=== PATIENT | female | born 1960 | race Caucasian/White ===

== ENCOUNTER 2020-08-16 09:04 | Outpatient (REF) | payer OTHER, SELFPAY ==
[2020-08-16 11:18] LABS: Hemoglobin 12.9 g/dl (12.0-16.0); Mean Corpuscular HGB Conc 33.1 g/dl (31.0-35.0); Mean Corpuscular Hemoglobin 30.2 pg (27.0-33.0); Mean Corpuscular Volume 91.3 fL (80-98); Mean Platelet Volume 10.4 fL (9.4-12.3); Platelet Count 185 X10*3/uL (160-400); Red Blood Count 4.27 X10*6/uL (4.20-5.50); Red Cell Distribution Width 11.9 % (11.0-16.0); White Blood Count 4.6 X10*3/uL (4.8-10.8)
[2020-08-16 11:36] LABS: Glucose Urine UA NEG (NEG); Leukocyte Esterase Urine NEG (NEG); Nitrite Urine NEG (NEG); PH 7.5 (5.0-8.0); Specific Gravity - Urine 1.015 (1.005-1.025); Urine Blood 2+ (NEG); Urine Ketones NEG (NEG); Urine Protein NEG (NEG-TRACE)
[2020-08-16 11:45] LABS: Appearance Urine CLEAR; Color Urine YELLOW
[2020-08-16 11:54] LABS: Alanine Aminotransferase 12 U/L (0-31); Albumin Level 4.2 g/dL (3.5-5.0); Alkaline Phosphatase 69 U/L (39-117); Anion Gap 12 (12-20); Aspartate Amino Transferase 20 U/L (5-31); Bilirubin Total 0.7 mg/dL (0.0-1.0); Blood Urea Nitrogen 13 mg/dL (9-16); Calcium 9.1 mg/dL (8.4-10.2); Carbon Dioxide 28 mmol/L (22-29); Chloride 106 mmol/L (96-108); Cholesterol 165 mg/dL; Estimated Glomerular Filt Rate > 60; Glucose Fasting 88 mg/dL (60-99); HDL Cholesterol 57 mg/dL; LDL Cholesterol Calculated 97 mg/dl; Potassium 4.1 mmol/l (3.3-5.1); Sodium 142 mmol/L (135-145); Total Protein 6.8 g/dL (6.5-8.0); Triglycerides 56 mg/dL
[2020-08-16 11:55] LABS: Renal Epithelial Cells Urine TRACE /LPF; Squamous Epithelial Cell Urine TRACE /LPF
[2020-08-16 11:58] LABS: Thyroid Stimulating Hormone 1.18 uIU/mL (0.32-4.0)
== END 2020-08-16 09:05 | disposition home or self-care (01) ==
LOC: HO.HMGCLDS 09:04
PROVIDERS: PCP Internal Medicine; Visit Provider Internal Medicine
DX: Z00.00 Encounter for general adult medical examination without abnormal findings (principal)
CPT/HCPCS: 36415; 80053; 80061; 81001; 84443; 85027

== ENCOUNTER 2021-07-30 14:31 | Outpatient (REF) | payer OTHER, SELFPAY | END 2021-07-30 14:32 | disposition home or self-care (01) | LOC: HO.LNP 14:31 | PROVIDERS: Visit Provider Nurse Practitioner Family | DX: R09.81 Nasal congestion (principal); R50.9 Fever, unspecified; R63.0 Anorexia; Z20.822 Contact with and (suspected) exposure to COVID-19 | CPT/HCPCS: U0003; U0005 ==

== ENCOUNTER 2021-08-19 09:16 | Outpatient (REF) | payer OTHER, SELFPAY ==
[2021-08-19 11:44] LABS: Hematocrit 36.8 % (37.0-47.0); Hemoglobin 12.1 g/dl (12.0-16.0); Mean Corpuscular HGB Conc 32.9 g/dl (31.0-35.0); Mean Corpuscular Hemoglobin 30.6 pg (27.0-33.0); Mean Corpuscular Volume 92.9 fL (80.0-98.0); Mean Platelet Volume 10.3 fL (9.4-12.3); Platelet Count 220 X10*3/uL (160-400); Red Blood Count 3.96 X10*6/uL (4.20-5.50); Red Cell Distribution Width 12.7 % (11.0-16.0); White Blood Count 3.5 X10*3/uL (4.8-10.8)
[2021-08-19 11:52] LABS: Appearance Urine HAZY; Color Urine YELLOW; Glucose Urine UA NEG (NEG); Leukocyte Esterase Urine NEG (NEG); Nitrite Urine NEG (NEG); PH 7.5 (5.0-8.0); Urine Blood 1+ (NEG); Urine Ketones NEG (NEG); Urine Protein NEG (NEG-TRACE)
[2021-08-19 11:56] LABS: Alanine Aminotransferase 28 U/L (0-31); Albumin Level 3.9 g/dL (3.5-5.0); Alkaline Phosphatase 74 U/L (39-117); Anion Gap 9 (12-20); Aspartate Amino Transferase 26 U/L (5-31); Bilirubin Total 0.7 mg/dL (0.0-1.0); Blood Urea Nitrogen 7 mg/dL (9-16); Calcium 9.2 mg/dL (8.4-10.2); Carbon Dioxide 29 mmol/L (22-29); Chloride 107 mmol/L (96-108); Cholesterol 185 mg/dL; Estimated Glomerular Filt Rate > 60; Glucose Fasting 83 mg/dL (60-99); HDL Cholesterol 44 mg/dL; LDL Cholesterol Calculated 117 mg/dl; Potassium 4.1 mmol/L (3.3-5.1); Sodium 141 mmol/L (135-145); Total Protein 6.5 g/dL (6.5-8.0); Triglycerides 123 mg/dL
[2021-08-19 12:15] LABS: WBC Urine 0 /HPF (0-4)
[2021-08-19 12:18] LABS: Vitamin D 25-OH Total 33.9 ng/mL (>30)
== END 2021-08-19 09:17 | disposition home or self-care (01) ==
LOC: HO.HMGCLDS 09:16
PROVIDERS: PCP Internal Medicine; Visit Provider Internal Medicine
DX: Z00.00 Encounter for general adult medical examination without abnormal findings (principal); E55.9 Vitamin D deficiency, unspecified; R31.29 Other microscopic hematuria
CPT/HCPCS: 36415; 80053; 80061; 81001; 82306; 84443; 85027

== ENCOUNTER → 2021-12-04 09:59 | Outpatient (BNVA) | payer OTHER, SELFPAY | PROVIDERS: PCP Internal Medicine; Referring Provider Internal Medicine; Visit Provider Physician Assistant | DX: Z13.89 Encounter for screening for other disorder (principal) ==

== ENCOUNTER 2022-07-03 11:42 | Day surgery (SDC) | payer OTHER, SELFPAY ==
--- NOTE | 2022-07-02 12:09 | HO.ANESPROP2 ---
Documented by User: Nellie Lozano NP 07/02/22 12:10 HPI - Anesthesia Eval Consult details Narrative: 62yo F for Colonoscopy PMFSH Active Problems Active Problems: All Active Problems (Updated 12/04/21 @ 10:55 by Prema Campos PA-C) Encounter for screening colonoscopy (Acute) Hair loss (Acute) Normal breast exam (Acute) Fever (Acute) Nasal congestion (Acute) Poor appetite (Acute) Diffuse otitis externa, bilateral (Acute) Vitamin D deficiency (Acute) Microscopic hematuria (Acute) Normal Pap smear (Acute) Annual physical exam (Acute) Past Medical History Medical History Annual physical exam Hair loss Microscopic hematuria Normal breast exam Normal Pap smear Osteopenia Vitamin D deficiency Vitiligo Surgical History Surgical History H/O colonoscopy No pertinent past surgical history Social History Social History Housing: House Alcohol intake: never Patient Tobacco Use Status: Never used Tobacco e-Cigarette/Vaping Use: Never Used Use of substances other than those prescribed or required for medical reasons: No Are you DNR?: No Advance Directives: No Advance Directives Information Provided: Yes Current occupational status: employed Meds Allergies Allergy/AdvReac Type Severity Reaction Status Date / Time No Known Allergies Allergy Verified 06/30/22 11:20 Home Medications Medication Instructions Recorded Confirmed Last Taken Type multivit with min-folic 1 tab PO DAILY 07/30/21 06/30/22 Unknown History acid-lutein 400 mcg-250 mcg chewable tablet (Centrum Silver) Exam Exam Date and Time: July 02, 2022 1209 Assessment and Plan Assessment Anesthesia Assessment: Chart Reviewed Documented by User: Maureen Sharpe MD 07/03/22 12:30 PMFSH Active Problems Active Problems: All Active Problems (Updated 12/04/21 @ 10:55 by Prema Campos PA-C) Encounter for screening colonoscopy (Acute) Hair loss (Acute) Normal breast exam (Acute) Nasal congestion (Acute) Poor appetite (Acute) Diffuse otitis externa, bilateral (Acute) Vitamin D deficiency (Acute) Microscopic hematuria (Acute) Normal Pap smear (Acute) Annual physical exam (Acute) Past Medical History Medical History Annual physical exam Hair loss Microscopic hematuria Normal breast exam Normal Pap smear Osteopenia Vitamin D deficiency Vitiligo Family History Family history of problems with anesthesia: No Surgical History Surgical History H/O colonoscopy No pertinent past surgical history History of Problems with Anesthesia: No Social History Social History Housing: House Alcohol intake: never Patient Tobacco Use Status: Never used Tobacco e-Cigarette/Vaping Use: Never Used Use of substances other than those prescribed or required for medical reasons: No Are you DNR?: No Advance Directives: No Advance Directives Information Provided: Yes Current occupational status: employed Meds Allergies Allergy/AdvReac Type Severity Reaction Status Date / Time No Known Allergies Allergy Verified 06/30/22 11:20 Home Medications Medication Instructions Recorded Confirmed Last Taken Type multivit with min-folic 1 tab PO DAILY 07/30/21 06/30/22 Unknown History acid-lutein 400 mcg-250 mcg chewable tablet (Centrum Silver) Exam Height,Weight and Vital Signs: Height 5 ft 2 in Weight 63.503 kg Vital Signs Temp Pulse Resp BP Pulse Ox O2 Del Method 07/03/22 11:59 98.9 F 77 18 143/79 H 97 Room Air Airway Mallampati Class: II TM Dist: >3cm Neck ROM: Full Denture: Upper and Lower Heart: RRR Lungs: CTAB Assessment and Plan Assessment Anesthesia Assessment: Anesthesia Plan Discussed Final Anesthetic Review Family History of Problems with Anesthesia: No History of Problems with Anesthesia: No NPO: Yes ASA Class: II Final Preanesthetic Review: No Changes in Pt Med Stat, Meds/Allgs Chart Reviewed, Consent Obtained/Reviewed and Anes Risks/Benef Reviewed Patient Risk: Low Procedure Risk: Low Assessment/Block/Sedation in SS: Assess/Block/Sedation-SS Anesthetic Plan Anesthetic Plan: MAC: Disposition: Standard PACU
[2022-07-03 11:59] VITALS: BP 143/79; PULSE 77; RESP 18; TEMP 37.2; O2SAT 97; BMI 25.6
[2022-07-03] MEDS: Lactated Ringers 1,000 ML 100 ML IVCONT (12:21)
--- NOTE | 2022-07-03 13:31 | MHC.SHP ---
Pre-Procedural Eval Section A Date of Service: 07/03/22 The patient is an INPATIENT: No The History & Physical has been completed within 30 days and I have reviewed it.: No Section B Chief Complaint: screening Details of Present Illness: colon cancer screening Relevant Family History (Specify if Yes): No Relevant Social History: None Present Medications: see Short Stay Collaborative assessment Medical History: Significant History (Hair loss Microscopic hematuria Normal breast exam Normal Pap smear Osteopenia Vitamin D deficiency Vitiligo) History of Previous Operations: Relevant previous surgery/procedure and date(s) ( history of colonoscopy) Allergies: Allergies Allergy/AdvReac Type Severity Reaction Status Date / Time No Known Allergies Allergy Verified 06/30/22 11:20 Review of Systems Sugical H&P ROS: Negative: Constitution, Cardiovascular, Respiratory and Gastrointestinal Exam Surgical H&P Exam: Normal: Heart, Normal: Lungs, Normal: Extremities and Normal: Abdomen Plan Diagnosis/Plan: Unchanged I have reviewed the history and physical and performed a pertinent physical examination on my patient. No changes have occurred unless specified.
--- NOTE | 2022-07-03 13:36 | P.BOP_ITS ---
Brief Operative Note Date of Service: 07/03/22 Pre-op diagnosis: colon cancer screening Post-op diagnosis: other ( diverticulosis, hemorrhoids) Procedure: COLONOSCOPY TO CECUM Surgeon: Carline Cormier MD Anesthesia: MAC Was an Rubber Compounder Supervisor used for this Procedure?: Yes Rubber Compounder Supervisor: Paul Smith Estimated blood loss (mL): 0 Pathology: none sent Condition: stable Disposition: PACU
--- NOTE | 2022-07-03 13:37 | W.PM.OPN ---
Operative Note Operative Note Date of Service: 07/03/22 Narrative: Pre-op diagnosis: colon cancer screening Post-op diagnosis:?other ( diverticulosis, hemorrhoids) Surgeon:Carline Cormier MD Anesthesia:?MAC COLONOSCOPY TILL CECUM Consent: Indications for the procedure and potential complications of bleeding, perforation, reaction to medications and missed diagnosis were discussed with the patient and informed consent was obtained. Instrument: Olympus PCF H 190 L variable stiffness pediatric colonoscope Monitoring: Vital signs and clinical assessment, intermittent blood pressure monitoring, continuous EKG monitoring, Pulse oximetry and Carbon Dioxide monitoring were done throughout the procedure. Colon withdrawl time was 13 minutes. Procedure: The patient was placed in the left lateral decubitis position and pre-procedure medications were administered. After a digital rectal examination of the ano-rectum, the video colonoscope was inserted into the rectum and advanced through the colon to the cecum. The colonoscope was slowly withdrawn in a retrograde panoramic fashion and the colon mucosa was carefully examined including a retroflexed view of the rectum. Findings and interventions are described below. Procedure Difficulty: Without difficulty Findings: Terminal Ileum: Not evaluated Cecum: Normal Ascending Colon: Normal Transverse Colon: Normal Descending Colon: Moderate diverticulosis Sigmoid Colon: Moderate diverticulosis Rectum: Normal Ano-rectum: Moderate internal hemorrhoids Colon preparation: Excellent Impression and Post Procedure Diagnosis: Colonoscopy Findings: No polyps were detected. Moderate diverticulosis seen in the left colon Moderate hemorrhoids on retroflexed exam. Plan: Patient has an appointment on 07/16/22 in the [facility] with JEN Booker. Repeat Colonoscopy in 10 years. Above findings were reviewed with the patient and diverticulosis handout was given in the discharge area
[2022-07-03 14:11] VITALS: BP 114/73; PULSE 78; RESP 16; TEMP 36.9; O2SAT 99
[2022-07-03 14:25] VITALS: BP 114/73; PULSE 70; RESP 18; TEMP 37.1; O2SAT 99
== END 2022-07-03 14:50 | disposition home or self-care (01) ==
PROVIDERS: PCP Internal Medicine; Visit Provider Internal Medicine Gastroenterology
PROC: 0DJD8ZZ Inspection of Lower Intestinal Tract, Via Natural or Artificial Opening Endoscopic (ICD-10-PCS; CPT 45378; principal; 2022-07-03 13:00)
DX: Z12.11 Encounter for screening for malignant neoplasm of colon (principal); K57.30 Diverticulosis of large intestine without perforation or abscess without bleeding; K64.8 Other hemorrhoids; E55.9 Vitamin D deficiency, unspecified; M85.80 Other specified disorders of bone density and structure, unspecified site; L80 Vitiligo; L65.9 Nonscarring hair loss, unspecified; Z86.16 Personal history of COVID-19
CPT/HCPCS: 45378

== ENCOUNTER 2022-08-24 09:24 | Outpatient (REF) | payer OTHER, SELFPAY ==
[2022-08-24 11:38] LABS: Hematocrit 38.6 % (37.0-47.0); Hemoglobin 12.7 g/dl (12.0-16.0); Mean Corpuscular HGB Conc 32.9 g/dl (31.0-35.0); Mean Corpuscular Hemoglobin 29.7 pg (27.0-33.0); Mean Corpuscular Volume 90.2 fL (80.0-98.0); Mean Platelet Volume 10.2 fL (9.4-12.3); Platelet Count 198 X10*3/uL (160-400); Red Blood Count 4.28 X10*6/uL (4.20-5.50); Red Cell Distribution Width 11.9 % (11.0-16.0); White Blood Count 4.6 X10*3/uL (4.8-10.8)
[2022-08-24 13:06] LABS: Alanine Aminotransferase 14 U/L (0-31); Albumin Level 4.1 g/dL (3.5-5.0); Alkaline Phosphatase 77 U/L (39-117); Anion Gap 10 (12-20); Aspartate Amino Transferase 21 U/L (5-31); Bilirubin Total 0.5 mg/dL (0.0-1.0); Blood Urea Nitrogen 13 mg/dL (9-16); Calcium 9.2 mg/dL (8.4-10.2); Carbon Dioxide 28 mmol/L (22-29); Chloride 107 mmol/L (96-108); Cholesterol 184 mg/dL; Estimated Glomerular Filt Rate > 60; Glucose Fasting 94 mg/dL (60-99); HDL Cholesterol 54 mg/dL; LDL Cholesterol Calculated 114 mg/dl; Sodium 141 mmol/L (135-145); TSH reflex Free T4 1.09 uIU/mL (0.32-4.0); Total Protein 6.5 g/dL (6.5-8.0); Triglycerides 81 mg/dL
== END 2022-08-24 09:25 | disposition home or self-care (01) ==
LOC: HO.HMGCLDS 09:24
PROVIDERS: PCP Internal Medicine; Visit Provider Internal Medicine
DX: Z00.00 Encounter for general adult medical examination without abnormal findings (principal); E55.9 Vitamin D deficiency, unspecified
CPT/HCPCS: 36415; 80053; 80061; 82306; 84443; 85027

== ENCOUNTER 2022-08-26 12:33 | Outpatient (REF) | payer OTHER, SELFPAY ==
[2022-08-26 13:56] LABS: Appearance Urine Clear; Color Urine Yellow; Glucose Urine UA Negative (Negative); Leukocyte Esterase Urine Negative (Negative); Nitrite Urine Negative (Negative); PH 6.5 (5.0-9.0); Specific Gravity - Urine <= 1.005 (1.005-1.025); UMIC TRIGGER UA YES; Urine Blood Small (1+) (Negative); Urine Ketones Negative (Negative); Urine Protein Negative (Neg-Trace)
[2022-08-26 14:08] LABS: Bacteria Urine None Seen (None Seen); Hyaline Casts Urine 0-2 /LPF (0-2); Squamous Epithelial Cell Urine 0-2 /HPF (0-2); WBC Urine 0-5 /HPF (0-5)
== END 2022-08-26 12:34 | disposition home or self-care (01) ==
LOC: HO.HMGCLDS 12:33
PROVIDERS: PCP Internal Medicine; Visit Provider Internal Medicine
DX: Z00.00 Encounter for general adult medical examination without abnormal findings (principal); R31.29 Other microscopic hematuria
CPT/HCPCS: 81001

== ENCOUNTER 2022-09-15 13:41 | Outpatient (REF) | payer OTHER, SELFPAY ==
--- NOTE | ~2022-09-15 | MM_ITS ---
EXAMINATION: BONE DENSITOMETRY CLINICAL INDICATION: Asymptomatic menopausal state. COMPARISON: This is testing 123 TECHNIQUE: Using a Clinical Ink DXA System (software version: 13.1) manufactured by [employer], dual-energy x-ray absorptiometry was performed of the lumbar spine and left hip. The images are of good technical quality. Summary results are attached. FINDINGS: AP SPINE L1-L4: BMD 0.855 g/cm2, Z-score -1.3, T-score -2.7, osteoporosis. LEFT FEMUR, NECK: BMD 0.794 g/cm2, Z-score -0.4, T-score -1.8, osteopenia. LEFT FEMUR, TOTAL: BMD 0.916 g/cm2, Z-score 0.3, T-score -0.7, normal. IDENTIFIED RISK FACTORS: Menopause. HISTORY OF FRACTURE: None listed. MEDICATIONS: Calcium supplement and/or multivitamin. Vitamin D. MM/XR DEXA axial skeleton IMPRESSION: 1. DIAGNOSIS: Osteoporosis based on the lowest T-score value of -2.7 in the lumbar spine applying World Health Organization criteria. 2. 10-YEAR FRACTURE RISK PREDICTION, FRAX: According to the guidelines, FRAX calculation should only be performed on patients in the osteopenia bone density category.?Therefore, FRAX was not performed on this patient.? 3. Treatment Recommendations: NOF guidelines recommend consideration for treatment in postmenopausal women and men age 50 and older presenting with the following: -A hip or vertebral (clinical or morphometric) fracture. -T-score less than or equal to -2.5 at the femoral neck or spine after appropriate evaluation to exclude secondary causes. -Low bone mass at the hip or spine and a 10-year fracture probability by FRAX of greater than or equal to 3% for hip fracture or greater than or equal to 20% for major osteoporotic fracture based on the [place] adapted WHO algorithm. 4. Other Recommendations: All treatment decisions require clinical judgment and consideration of individual patient factors, including patient preferences, comorbidities, previous drug use, risk factors not captured in the FRAX model (e.g. frailty, falls, vitamin D deficiency, increased bone turnover, interval significant decline in bone density) and possible under or overestimation of fracture risk by FRAX. Additional medical evaluation for secondary cause of low bone mineral density may be appropriate. FUTURE SCAN RECOMMENDATION: People with diagnosed cases of osteoporosis or at high risk for fracture should have regular bone mineral density tests. For patients eligible for Medicare, routine testing is allowed once every 2 years. The testing frequency can be increased to one year for patients who have rapidly progressing disease, those who are receiving or discontinuing medical therapy to restore bone mass, or have additional risk factors.
== END 2022-09-15 13:42 | disposition home or self-care (01) ==
LOC: HO.MAMMO 13:41
PROVIDERS: PCP Internal Medicine; Visit Provider Internal Medicine
DX: Z13.820 Encounter for screening for osteoporosis (principal); Z78.0 Asymptomatic menopausal state
CPT/HCPCS: 77080

== ENCOUNTER 2023-08-25 08:26 | Outpatient (REF) | payer OTHER, SELFPAY ==
[2023-08-25 11:28] LABS: MANUAL DIFF FLAG NO
[2023-08-25 11:39] LABS: Basophils Percent Auto 0.7 % (0-2); Eosinophils Absolute Auto 0.2 X10*3/uL (0.0-0.4); Eosinophils Percent Auto 3.4 % (0-4); Hematocrit 40.1 % (37.0-47.0); Hemoglobin 13.3 g/dl (12.0-16.0); Imm Gran Abs Auto 0.01 X10*3/uL (0.00-0.03); Imm Gran Pct Auto 0.2 % (0.0-0.4); Lymphocytes Absolute Auto 1.6 X10*3/uL (1.2-4.9); Lymphocytes Percent Auto 36.3 % (20-40); Mean Corpuscular HGB Conc 33.2 g/dl (31.0-35.0); Mean Corpuscular Hemoglobin 30.3 pg (27.0-33.0); Mean Corpuscular Volume 91.3 fL (80.0-98.0); Mean Platelet Volume 10.5 fL (9.4-12.3); Monocytes Absolute Auto 0.3 X10*3/uL (0.1-1.2); Monocytes Percent Auto 7.7 % (2-11); Neutrophils Absolute Auto 2.3 x10*3/uL (2.0-8.3); Neutrophils Percent Auto 51.7 % (45-73); Platelet Count 187 X10*3/uL (160-400); Red Blood Count 4.39 X10*6/uL (4.20-5.50); Red Cell Distribution Width 11.7 % (11.0-16.0); White Blood Count 4.4 X10*3/uL (4.8-10.8)
[2023-08-25 14:57] LABS: Alanine Aminotransferase 17 U/L (0-31); Albumin Level 4.2 g/dL (3.5-5.0); Alkaline Phosphatase 71 U/L (39-117); Anion Gap 9 (12-20); Aspartate Amino Transferase 24 U/L (5-31); Bilirubin Total 0.5 mg/dL (0.0-1.0); Blood Urea Nitrogen 13 mg/dL (9-16); Calcium 9.7 mg/dL (8.4-10.2); Carbon Dioxide 29 mmol/L (22-29); Chloride 107 mmol/L (96-108); Cholesterol 168 mg/dL (<200); Estimated Glomerular Filt Rate > 60; Glucose Fasting 93 mg/dL (60-99); HDL Cholesterol 56 mg/dL (>40); LDL Cholesterol Calculated 101 mg/dL (<100); Potassium 4.1 mmol/L (3.3-5.1); Sodium 141 mmol/L (135-145); Triglycerides 58 mg/dL (<150)
[2023-08-25 15:14] LABS: TSH reflex Free T4 1.72 uIU/mL (0.32-4.0)
== END 2023-08-25 08:27 | disposition home or self-care (01) ==
LOC: HO.HMGCLDS 08:26
PROVIDERS: PCP Internal Medicine; Visit Provider Internal Medicine
DX: Z00.00 Encounter for general adult medical examination without abnormal findings (principal)
CPT/HCPCS: 36415; 80053; 80061; 84443; 85025

== ENCOUNTER 2023-09-15 13:32 | Outpatient (AMB) | payer OTHER, SELFPAY ==
[2023-09-15 13:34] VITALS: BP 126/78; PULSE 74; O2SAT 99; BMI 27.4
--- NOTE | 2023-09-15 13:34 | MHC.PC.OV ---
Vital Signs 09/15/23 13:34 Height 5 ft 2 in Weight 150 lb BMI 27.4 BP 126/78 Blood Pressure Location Lt brachial Position Sitting Pulse 74 Pulse Source Pulse Oximeter Pulse Oximetry (%) 99 Oxygen Delivery Method Room Air Intake Visit Reasons: annual PE Intake Note: Pt is here today for PE. Allergies alendronate sodium [From Fosamax] Adverse Reaction (Intermediate, Verified 09/15/23 14:12) Stomach Upset Medication List - Last Reconciled 09/15/23 by Venessa Henriquez MD [id number] acid-lutein 400-250 mcg (Centrum Silver) 1 tab PO DAILY Tobacco use date assessed: 09/15/23 Dental Screening Dental Screen Date: 09/15/23 Did you have a dental visit in the last 12 months?: No Did you have a dental problem in the last 6 months where you did not have access to dental care?: No Was dental information given to patient?: Patient declined HPI annual PE HPI Details Pt presents for PE. [facility] Medical History Hair loss Normal breast exam Vitamin D deficiency Normal Pap smear Microscopic hematuria Vitiligo Osteopenia Annual physical exam Surgical History H/O colonoscopy No pertinent past surgical history Family History Father Hypertension Mother No problems noted. Social History Housing: House Alcohol intake: never Patient Tobacco Use Status: Never used Tobacco e-Cigarette/Vaping Use: Never Used Current occupational status: employed Cognitive needs: No Hearing needs: No Vision needs: No Questionnaire PHQ-9 Over the last 2 weeks, how often have you been bothered by any of the following problems? 1. Little interest or pleasure in doing things: not at all 2. Feeling down, depressed, or hopeless: not at all 3. Trouble falling or staying asleep, or sleeping too much: not at all 4. Feeling tired or having little energy: not at all 5. Poor appetite or overeating: not at all 6. Feeling bad about yourself - or that you are a failure or have let yourself or your family down: not at all 7. Trouble concentrating on things, such as reading the newspaper or watching television: not at all 8. Moving or speaking so slowly that other people could have noticed. Or the opposite - being so fidgety or restless that you have been moving around a lot more than usual: not at all 9. Thoughts that you would be better off or of hurting yourself in some way: not at all Total score: 0 Depression Screening Interpretation: Negative Depression Screening Done: Yes Source: Developed by Drs. Paul Hayden, Ellie Marquez, Dean Luna and colleagues, with an educational danae from [employer]. Thrive Questionnaire Date Thrive assessed: 09/15/23 I am a: Patient What is your living situation today?: I have a steady place to live Within the past 12 months, did the food you bought not last and you didn't have the money to get more?: Never true Within the past 12 months, did you worry whether your food would run out before you got money to buy more?: Never true Do you have trouble paying for medicines?: No Do you have trouble getting transportation to medical appointments?: No Do you have trouble paying your heating and electricity bill?: No Do you have trouble taking care of your child, family member or friend?: No Do you have trouble with day-to-day activities such as bathing, preparing meals, shopping, managing finances, etc.?: No Are you currently unemployed and looking for a job?: No Are you interested in more education?: No Please select the resources that you would like help with: None Currently or been in a relationship where the following occur: no concerns reported AUDIT C Alcohol Use Questionnaire (AUDIT-C) 1. How often do you have a drink containing alcohol?: Never 3. How often do you have six or more drinks on one occasion?: Never Total Score: 0 SONU-7 AMB Questionnaire SONU-7 Date SONU - 7 assessed: 09/15/23 Feeling nervous, anxious, or on edge: 0 = Not at all Not being able to stop or control worryin = Not at all Worrying too much about different things: 0 = Not at all Trouble relaxin = Not at all Being so restless that it is hard to sit still: 0 = Not at all Becoming easily annoyed or irritable: 0 = Not at all Feeling afraid as if something awful might happen: 0 = Not at all Total SONU-7 score (0-4 normal; 5-9 mild; 10-14 moderate; 15-21 severe): 0 Source: Developed by Drs. Paul Hayden, Ellie Marquez, Dean Luna and colleagues, with an educational danae from [employer]. Review of Systems Const All systems reviewed & are unremarkable except as noted in HPI and below Reports no additional complaints Eyes Reports no additional complaints ENT Reports no additional complaints Card Reports no additional complaints Resp Reports no additional complaints GI Reports no additional complaints Reports no additional complaints Physical exam (Primary Care) Vital Signs: Last Vital Signs Pulse 74 09/15/23 13:34 BP 126/78 09/15/23 13:34 Pulse Ox 99 09/15/23 13:34 Oxygen Delivery Method Room Air 09/15/23 13:34 BMI result Body Mass Index 27.4 Tobacco/Smoking Status: Tobacco use Status Tobacco use date assessed 09/15/23 09/15/23 13:45 Patient Tobacco Use Status Never used Tobacco 09/15/23 13:45 e-Cigarette/Vaping Use Never Used 09/15/23 13:34 PHQ-9: PHQ-9 Score PHQ-9: Total score 0 09/15/23 14:08 Depression Screening Interpretation: Negative Thrive Assessment: Date of Thrive Assessment Date Thrive assessed 09/15/23 09/15/23 13:53 Currently or been in a relationship where the following occur: no concerns reported Const General: no acute distress HENMT Ears: hearing grossly normal bilaterally Mouth: Normal oral and palatal mucosa present Eyes General: appearance normal, both eyes and all related structures Neck Neck: Yes no lymphadenopathy and Yes supple Resp Effort & Inspection: normal respiratory effort Auscultation: clear to auscultation bilaterally Cardio Rhythm: regular rhythm Heart sounds: S1 normal heart sound present and S2 normal heart sound present GI Inspection: Yes normal to inspection Palpation (GI): Soft to palpation Percussion: Yes normal to percussion Auscultation: normal bowel sounds Assessment and Plan Assessment & Plan (1) Microscopic hematuria: Comment: f/u Dr. Mercedes , negative workup including cystoscopy, nl renal US 11/2019 Code(s): R31.29 - Other microscopic hematuria Plan: check UA (2) Annual physical exam: Code(s): Z00.00 - Encounter for general adult medical examination without abnormal findings Plan: Well-balanced diet regular physical active discussed with the patient. She declined mammogram and Pap smear (3) Osteoporosis: Comment: DEXA 08/27 T score -2.7. Fosamax started on 09/28 , patient could not tolerate due to stomach upset, will continue vitamin-D and exercise and repeat DEXA in 09/30 Code(s): M81.0 - Age-related osteoporosis without current pathological fracture Plan: Continue vitamin-D supplement increase weight-bearing exercise, repeat DEXA in September 2024 Orders: Orders UA w Microscopic Today R31.29 - Other microscopic hematuria Coding Level of Care Code Est Pt Prev Care 40-64y(92281) Diagnoses Microscopic hematuria R31.29 Annual physical exam Z00.00 Osteoporosis M81.0
== END 2023-09-15 15:43 | disposition home or self-care (01) ==
PROVIDERS: PCP Internal Medicine; Visit Provider Internal Medicine
DX: R31.29 Other microscopic hematuria (principal); Z00.00 Encounter for general adult medical examination without abnormal findings; M81.0 Age-related osteoporosis without current pathological fracture
CPT/HCPCS: 99396

== ENCOUNTER 2023-09-15 14:26 | Outpatient (REF) | payer OTHER, SELFPAY ==
[2023-09-15 16:46] LABS: Appearance Urine Clear; Color Urine Yellow; Glucose Urine UA Negative (Negative); Leukocyte Esterase Urine Negative (Negative); Nitrite Urine Negative (Negative); PH 6.5 (5.0-9.0); Specific Gravity - Urine 1.015 (1.005-1.025); UMIC TRIGGER UA YES; Urine Blood Moderate (2+) (Negative); Urine Ketones Negative (Negative); Urine Protein Negative (Neg-Trace)
[2023-09-15 16:49] LABS: Bacteria Urine None Seen (None Seen); Hyaline Casts Urine 0-2 /LPF (0-2); RBC Urine >20 /HPF (0-2); Squamous Epithelial Cell Urine 0-2 /HPF (0-2); WBC Urine 0-5 /HPF (0-5)
== END 2023-09-15 14:27 | disposition home or self-care (01) ==
LOC: HO.HMGCLDS 14:26
PROVIDERS: PCP Internal Medicine; Visit Provider Internal Medicine
DX: R31.29 Other microscopic hematuria (principal)
CPT/HCPCS: 81001

== ENCOUNTER 2023-11-09 11:14 | Outpatient (AMB) | payer OTHER, SELFPAY ==
[2023-11-09 12:23] VITALS: BP 128/72; PULSE 64; TEMP 36.8; O2SAT 97; BMI 27.8
--- NOTE | 2023-11-09 12:23 | MHC.OFFWIV ---
Intake Vital Signs 11/09/23 12:23 Height 5 ft 2 in Weight 152 lb BMI 27.8 BP 128/72 Blood Pressure Location Lt brachial Pulse 64 Pulse Source Pulse Oximeter Temp 98.3 F Temp Source Oral Pulse Oximetry (%) 97 Oxygen Delivery Method Room Air Intake Visit Reasons: cough,stuffy nose Intake Note: Patient is here with cough, stuffy nose, chest congested with phlegm. Patient Tobacco Use Status: Never used Tobacco Allergies alendronate sodium [From Fosamax] Adverse Reaction (Intermediate, Verified 11/09/23 12:25) Stomach Upset Do you need a note to return to daycare/school/sports/work: Yes HPI cough,stuffy nose HPI Details 63 y/o female presents with complaints of a cough, stuffy nose, chest congestion. She reports symptoms started a few days ago Wednesday. 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 [facility] Medical History (Updated 11/09/23 @ 12:34 by Alpesh Salguero) Hair loss Normal breast exam Vitamin D deficiency Normal Pap smear Microscopic hematuria Vitiligo Osteopenia Annual physical exam Surgical History H/O colonoscopy No pertinent past surgical history Family History Father Hypertension Mother No problems noted. Social History Housing: House Alcohol intake: never Patient Tobacco Use Status: Never used Tobacco e-Cigarette/Vaping Use: Never Used Current occupational status: employed Cognitive needs: No Hearing needs: No Vision needs: No Physical Exam Vital Signs: Last Vital Signs Pulse 64 11/09/23 12:23 BP 128/72 11/09/23 12:23 Pulse Ox 97 11/09/23 12:23 Oxygen Delivery Method Room Air 11/09/23 12:23 BMI result Body Mass Index 27.8 Resp Other: Wheezing, pops and squeaks at left base Auscultation: not clear to auscultation bilaterally Assessment & Plan Assessment & Plan (1) Cough: Code(s): R05.9 - Cough, unspecified Plan: Productive?cough?with?congestion?and?patient?has?wheezing,?pops?and?squeaks?at?left?base. No?fevers?but?still?concern?for?possible?pneumonia verses?bronchitis. Will?give?her?a?script?for?a?Z-Zak?and?short?course?of?prednisone Checking?chest?x-ray Checking?nasal?swab?for?COVID/flu/RSV. Will?give?her?a?note?to?stay?out?of?work?for?today?and?tomorrow?pending?test?results.??She?can?return?when?feeling?better?if?nasal?swab?is?negative. (2) Abnormal lung sounds: Code(s): R09.89 - Other specified symptoms and signs involving the circulatory and respiratory systems Plan: As?above Orders: Orders SARS-CoV2/FLU/RSV Today R05.9 - Cough, unspecified, Z20.822 - Contact with and (suspected) exposure to COVID-19 XR chest 2V Today R05.9 - Cough, unspecified, R09.89 - Other specified symptoms and signs involving the circulatory and respiratory systems Medications: New prednisone 40 mg (2 x 20 mg) PO DAILY 8 tabs 0RF 4 days Refilled azithromycin For 250 mg dose pack: take 500 mg today (day 1), then 250 mg for 4 days (days 2-5) PO 6 tabs 0RF Coding Level of Care Code Est Pt Level 3 (21867) Diagnoses Cough R05.9 Abnormal lung sounds R09.89
== END 2023-11-09 12:42 | disposition home or self-care (01) ==
PROVIDERS: PCP Internal Medicine; Visit Provider Family Medicine
DX: R05.9 Cough, unspecified (principal); R09.89 Other specified symptoms and signs involving the circulatory and respiratory systems
CPT/HCPCS: 99213

== ENCOUNTER 2023-11-09 12:44 | Outpatient (REF) | payer OTHER, SELFPAY ==
[2023-11-09 15:08] LABS: Influenza A PCR NEGATIVE (Negative); Influenza B PCR NEGATIVE (Negative); Resp Syncy Virus RNA Qual PCR NEGATIVE (Negative); SARS COV2 PCR INHOUSE NEGATIVE (Negative)
== END 2023-11-09 12:45 | disposition home or self-care (01) ==
LOC: HO.LAB 12:44
PROVIDERS: Visit Provider Family Medicine
DX: Z11.52 Encounter for screening for COVID-19 (principal); Z20.822 Contact with and (suspected) exposure to COVID-19; R05.9 Cough, unspecified
CPT/HCPCS: 0241U

== ENCOUNTER 2023-11-09 13:48 | Outpatient (REF) | payer OTHER, SELFPAY ==
--- NOTE | ~2023-11-09 | XR_ITS ---
EXAMINATION: XR CHEST CLINICAL INFORMATION: R09.89 - Other specified symptoms and signs involving the circulatory an... COMPARISON: None available. TECHNIQUE: 2 views of the chest were obtained. FINDINGS: No significant abnormality is noted involving the heart, lungs, mediastinum, bony thorax or soft tissues. XR/XR chest 2V IMPRESSION: Unremarkable examination. When additional information regarding clinical indication is obtained, an addendum can be issued.
== END 2023-11-09 13:49 | disposition home or self-care (01) ==
LOC: HO.HMGCX 13:48
PROVIDERS: PCP Internal Medicine; Visit Provider Family Medicine
DX: R09.89 Other specified symptoms and signs involving the circulatory and respiratory systems (principal); R05.9 Cough, unspecified
CPT/HCPCS: 71046

== ENCOUNTER 2023-11-16 12:51 | Outpatient (AMB) | payer OTHER, SELFPAY ==
--- NOTE | 2023-11-16 13:30 | MHC.PC.OV ---
Vital Signs 11/16/23 13:31 Height 5 ft 2 in Weight 150 lb BMI 27.4 BP 126/80 Blood Pressure Location Lt brachial Position Sitting Pulse 73 Pulse Source Pulse Oximeter Pulse Oximetry (%) 96 Oxygen Delivery Method Room Air Intake Visit Reasons: Reaction to Antibiotics given at walk-in Intake Note: Pt is here today for a sick visit. Pt states that she was seen at Urgent Care and was given antibiotic and she has been having abdominal pain and burning and she stopped taking it. Allergies doxycycline Allergy (Intermediate, Verified 11/16/23 13:40) Abdominal Pain alendronate sodium [From Fosamax] Adverse Reaction (Intermediate, Verified 11/16/23 13:39) Stomach Upset Tobacco use date assessed: 11/16/23 HPI Reaction to Antibiotics given at walk-in HPI Details Pt c/o persistent cough for 2 weeks. She took Z-Zak with prednisone last week but complained of persistent congestion and cough and was evaluated in walk in for 3 days ago and was prescribed doxycycline. Patient developed abdominal pain and nausea after the 3rd dose of doxycycline and stopped taking it. She denies sputum production shortness for breath fever chills PND orthopnea sinus congestion. [facility] Medical History (Updated 11/16/23 @ 15:33 by Venessa Henriquez MD) Hair loss Normal breast exam Vitamin D deficiency Normal Pap smear Microscopic hematuria Vitiligo Osteopenia Annual physical exam Surgical History H/O colonoscopy No pertinent past surgical history Family History Father Hypertension Mother No problems noted. Social History Housing: House Alcohol intake: never Patient Tobacco Use Status: Never used Tobacco e-Cigarette/Vaping Use: Never Used Current occupational status: employed Cognitive needs: No Hearing needs: No Vision needs: No Questionnaire Thrive Questionnaire Date Thrive assessed: 09/15/23 SONU-7 AMB Questionnaire SONU-7 Date SONU - 7 assessed: 09/15/23 Source: Developed by Drs. Paul Hayden, Ellie Marquez, Dean Luna and colleagues, with an educational danae from [email or web address]. Review of Systems Const All systems reviewed & are unremarkable except as noted in HPI and below Reports no additional complaints Eyes Reports no additional complaints ENT Reports no additional complaints Card Reports no additional complaints Resp Reports no additional complaints GI Reports no additional complaints Reports no additional complaints Physical exam (Primary Care) Vital Signs: Last Vital Signs Pulse 73 11/16/23 13:31 BP 126/80 11/16/23 13:31 Pulse Ox 96 11/16/23 13:31 Oxygen Delivery Method Room Air 11/16/23 13:31 BMI result Body Mass Index 27.4 Tobacco/Smoking Status: Tobacco use Status Tobacco use date assessed 11/16/23 11/16/23 13:42 Patient Tobacco Use Status Never used Tobacco 11/16/23 13:31 e-Cigarette/Vaping Use Never Used 11/16/23 13:31 Thrive Assessment: Date of Thrive Assessment Date Thrive assessed 09/15/23 11/16/23 13:31 Const General: no acute distress HENMT Head: Yes normal to inspection Face and sinus: Yes normal facial exam Throat: Yes posterior oropharynx normal Eyes General: appearance normal, both eyes and all related structures Neck Neck: Yes no lymphadenopathy and Yes supple Resp Effort & Inspection: normal respiratory effort Auscultation: clear to auscultation bilaterally Cardio Rhythm: regular rhythm Heart sounds: S1 normal heart sound present and S2 normal heart sound present Assessment and Plan Assessment & Plan (1) Post-viral cough syndrome: Code(s): R05.8 - Other specified cough Plan: Supportive care discussed with the patient Coding Level of Care Code Est Pt Level 3 (57525) Diagnoses Post-viral cough syndrome R05.8
[2023-11-16 13:31] VITALS: BP 126/80; PULSE 73; O2SAT 96; BMI 27.4
== END 2023-11-16 15:33 | disposition home or self-care (01) ==
PROVIDERS: PCP Internal Medicine; Visit Provider Internal Medicine
DX: R05.8 Other specified cough (principal)
CPT/HCPCS: 99213

== ENCOUNTER 2023-12-06 11:24 | Outpatient (AMB) | payer OTHER, SELFPAY ==
--- NOTE | 2023-12-06 11:29 | A.OFFPC_ITS ---
Vital Signs 12/06/23 11:30 Height 5 ft 2 in Weight 150 lb BMI 27.4 BP 138/80 Blood Pressure Location Rt brachial Position Sitting Pulse 79 Pulse Source Pulse Oximeter Pulse Oximetry (%) 98 Oxygen Delivery Method Room Air Intake Visit Reasons: Chest Pain Intake Note: Pt is here today for ER follow up visit. Allergies doxycycline Allergy (Intermediate, Verified 12/06/23 11:39) Abdominal Pain alendronate sodium [From Fosamax] Adverse Reaction (Intermediate, Verified 12/06/23 11:39) Stomach Upset Medication List - Last Reconciled 12/06/23 by Venessa Henriquez MD [id number] acid-lutein 400-250 mcg (Centrum Silver) 1 tab PO DAILY sertraline 25 mg PO DAILY Tobacco use date assessed: 11/16/23 Dental Screening Dental Screen Date: 12/06/23 Did you have a dental visit in the last 12 months?: Yes Did you have a dental problem in the last 6 months where you did not have access to dental care?: No Was dental information given to patient?: Patient has dentist HPI Chest Pain HPI Details Pt peresents for f/u SSCP radiating to midback lasting a few hours at the time for 5 days. 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 Patient is very upset and anxious about the situation. [facility] Medical History Hair loss Normal breast exam Vitamin D deficiency Normal Pap smear Microscopic hematuria Vitiligo Osteopenia Annual physical exam Surgical History H/O colonoscopy No pertinent past surgical history Family History Father Hypertension Mother No problems noted. Social History Housing: House Alcohol intake: never Patient Tobacco Use Status: Never used Tobacco e-Cigarette/Vaping Use: Never Used Current occupational status: employed Cognitive needs: No Hearing needs: No Vision needs: No Questionnaire Thrive Questionnaire Date Thrive assessed: 09/15/23 SONU-7 AMB Questionnaire SONU-7 Date SONU - 7 assessed: 09/15/23 Source: Developed by Drs. Paul Hayden, Ellie Marquez, Dean Luna and colleagues, with an educational danae from [employer]. Review of Systems Const All systems reviewed & are unremarkable except as noted in HPI and below Reports no additional complaints Eyes Reports no additional complaints ENT Reports no additional complaints Card Reports no additional complaints Resp Reports no additional complaints GI Reports no additional complaints Reports no additional complaints Physical exam (Primary Care) Vital Signs: Last Vital Signs Pulse 79 12/06/23 11:30 BP 138/80 12/06/23 11:30 Pulse Ox 98 12/06/23 11:30 Oxygen Delivery Method Room Air 12/06/23 11:30 BMI result Body Mass Index 27.4 Tobacco/Smoking Status: Tobacco use Status Tobacco use date assessed 11/16/23 12/06/23 11:30 Patient Tobacco Use Status Never used Tobacco 12/06/23 11:30 e-Cigarette/Vaping Use Never Used 12/06/23 11:30 Thrive Assessment: Date of Thrive Assessment Date Thrive assessed 09/15/23 12/06/23 11:30 Const General: no acute distress HENMT Head: Yes normal to inspection Face and sinus: Yes normal facial exam Neck Neck: Yes supple Resp Effort & Inspection: normal respiratory effort Auscultation: clear to auscultation bilaterally Cardio Rhythm: regular rhythm Heart sounds: S1 normal heart sound present and S2 normal heart sound present Assessment and Plan Assessment & Plan (1) Anxiety: Code(s): F41.9 - Anxiety disorder, unspecified Plan: Stress management and by mindfulness discussed with the patient. Sertraline 25 mg daily will be started. Patient will follow-up in 1 month. Out of work note until December 19 and can be extended Medications: New sertraline 25 mg PO DAILY 30 tabs 0RF Coding Level of Care Code Est Pt Level 3 (32082) Diagnoses Anxiety F41.9
[2023-12-06 11:30] VITALS: BP 138/80; PULSE 79; O2SAT 98; BMI 27.4
== END 2023-12-06 12:57 | disposition home or self-care (01) ==
PROVIDERS: PCP Internal Medicine; Visit Provider Internal Medicine
DX: F41.9 Anxiety disorder, unspecified (principal)
CPT/HCPCS: 99213

== ENCOUNTER 2024-01-07 10:56 | Outpatient (AMB) | payer OTHER, SELFPAY ==
[2024-01-07 10:58] VITALS: BP 122/74; PULSE 67; O2SAT 97; BMI 27.1
--- NOTE | 2024-01-07 10:58 | A.OFFPC_ITS ---
Vital Signs 01/07/24 10:58 Height 5 ft 2 in Weight 148 lb BMI 27.1 BP 122/74 Blood Pressure Location Rt brachial Position Sitting Pulse 67 Pulse Source Pulse Oximeter Pulse Oximetry (%) 97 Oxygen Delivery Method Room Air Intake Visit Reasons: 1 month follow up Intake Note: Pt is here today for 1 month follow up visit. Allergies doxycycline Allergy (Intermediate, Verified 01/07/24 10:59) Abdominal Pain alendronate sodium [From Fosamax] Adverse Reaction (Intermediate, Verified 01/07/24 10:59) Stomach Upset Tobacco use date assessed: 01/07/24 Dental Screening Dental Screen Date: 12/06/23 HPI 1 month follow up HPI Details Patient presents for the follow-up of anxiety stable on sertraline. Patient denies any recurrent chest pain shortness for breath. She has a stress test scheduled next week at [facility] Medical History (Updated 01/07/24 @ 11:48 by Venessa Henriquez MD) Hair loss Normal breast exam Vitamin D deficiency Normal Pap smear Microscopic hematuria Vitiligo Osteopenia Annual physical exam Surgical History H/O colonoscopy No pertinent past surgical history Family History Father Hypertension Mother No problems noted. Social History Housing: House Alcohol intake: never Patient Tobacco Use Status: Never used Tobacco e-Cigarette/Vaping Use: Never Used service: No Current occupational status: employed Cognitive needs: No Hearing needs: No Vision needs: No Questionnaire Thrive Questionnaire Date Thrive assessed: 09/15/23 SONU-7 AMB Questionnaire SONU-7 Date SONU - 7 assessed: 09/15/23 Source: Developed by Drs. Paul Hayden, Ellie Marquez, Dean Luna and colleagues, with an educational danae from [employer]. Review of Systems Const All systems reviewed & are unremarkable except as noted in HPI and below Reports no additional complaints Eyes Reports no additional complaints ENT Reports no additional complaints Card Reports no additional complaints Resp Reports no additional complaints GI Reports no additional complaints Reports no additional complaints Physical exam (Primary Care) Vital Signs: Last Vital Signs Pulse 67 01/07/24 10:58 BP 122/74 01/07/24 10:58 Pulse Ox 97 01/07/24 10:58 Oxygen Delivery Method Room Air 01/07/24 10:58 BMI result Body Mass Index 27.1 Tobacco/Smoking Status: Tobacco use Status Tobacco use date assessed 01/07/24 01/07/24 11:01 Patient Tobacco Use Status Never used Tobacco 01/07/24 11:01 e-Cigarette/Vaping Use Never Used 01/07/24 11:01 Thrive Assessment: Date of Thrive Assessment Date Thrive assessed 09/15/23 01/07/24 11:01 Const General: no acute distress HENMT Throat: Yes posterior oropharynx normal Eyes General: appearance normal, both eyes and all related structures Neck Neck: Yes supple Resp Effort & Inspection: normal respiratory effort Auscultation: clear to auscultation bilaterally Cardio Rhythm: regular rhythm Heart sounds: S1 normal heart sound present and S2 normal heart sound present Assessment and Plan Assessment & Plan (1) Anxiety: Code(s): F41.9 - Anxiety disorder, unspecified Plan: CONTINUE [facility] FOLLOW-UP IN 4 MONTHS (2) Chest pain: Code(s): R07.9 - Chest pain, unspecified Plan: Patient is a stress test schedule at [facility] next week Medications: Refilled sertraline 25 mg PO DAILY 90 tabs 1RF Coding Level of Care Code Est Pt Level 3 (78203) Diagnoses Anxiety F41.9 Chest pain R07.9
== END 2024-01-07 11:36 | disposition home or self-care (01) ==
PROVIDERS: PCP Internal Medicine; Visit Provider Internal Medicine
DX: F41.9 Anxiety disorder, unspecified (principal); R07.9 Chest pain, unspecified
CPT/HCPCS: 99213

== ENCOUNTER 2024-01-21 09:44 | Outpatient (REF) | payer OTHER, SELFPAY ==
[2024-01-21 13:58] LABS: Blood Urea Nitrogen 18 mg/dL (9-16); Estimated Glomerular Filt Rate > 60
== END 2024-01-21 09:45 | disposition home or self-care (01) ==
LOC: HO.HMGCLDS 09:44
PROVIDERS: PCP Internal Medicine; Visit Provider Internal Medicine
DX: R31.29 Other microscopic hematuria (principal)
CPT/HCPCS: 36415; 82565; 84520

== ENCOUNTER 2024-02-03 09:17 | Outpatient (REF) | payer OTHER, SELFPAY ==
--- NOTE | ~2024-02-03 | CT_ITS ---
EXAMINATION: CT ABDOMEN AND PELVIS WITHOUT AND WITH CONTRAST CLINICAL INFORMATION: Microscopic hematuria. COMPARISON: Ultrasound kidneys 05/05/2019. TECHNIQUE: Multidetector volumetric imaging was performed of the abdomen and pelvis before and after the IV administration of 85 mL of Omnipaque 300 intravenous contrast. Sagittal and coronal reformatted images were obtained on the technologist's workstation. This CT examination was performed using dose optimization techniques as appropriate, variously including the following: *Automated exposure control. *Adjustment of mA and/or kV according to patient size (this includes techniques or standardized protocols for targeted exams where dose is matched to indication/reason for exam; i.e. extremities or head). *Use of iterative reconstruction technique. DLP: 590 mGy-cm FINDINGS: LUNG BASES: The visualized lung bases are unremarkable. LIVER, GALLBLADDER, AND BILIARY TREE: The liver is normal in size, shape, and attenuation. There is a 1.3 cm cyst in the right lobe of the liver adjacent to Morison's pouch. No suspicious solid focal hepatic lesion or biliary ductal dilatation is present. The gallbladder is unremarkable with no evidence of radiopaque gallstones, gallbladder wall thickening, or obvious pericholecystic inflammatory changes. PANCREAS: Unremarkable. SPLEEN: Unremarkable. ADRENAL GLANDS: Unremarkable. KIDNEYS AND URETERS: The kidneys are normal in size, shape, and attenuation. No hydronephrosis, hydroureter, or calculi seen. No perinephric stranding. BLADDER: Unremarkable. GASTROINTESTINAL TRACT: The small and large bowel are unremarkable. The appendix is unremarkable. ABDOMINAL WALL: No significant hernia is appreciated. LYMPH NODES: Normal. VASCULAR: Unremarkable. The left ovarian vein is dilated measuring 1 cm in diameter and there are moderate left-sided pelvic varices. PELVIC VISCERA: The uterus and adnexa are unremarkable aside from left-sided varices. OSSEOUS STRUCTURES: Unremarkable. CT/CT abdomen pelvis wo/w IV con IMPRESSION: 1. A cause for the patient's microscopic hematuria has not been found. 2. Incidental note made of a 1.3 cm hepatic cyst and dilated left ovarian vein with left-sided pelvic varices. Fleischner guidelines were followed.
[2024-02-03] MEDS: iohexoL 350 MG/ML 100 ML INFUS..BTL 85 ML IV (10:22)
== END 2024-02-03 09:18 | disposition home or self-care (01) ==
LOC: HO.CT 09:17
PROVIDERS: PCP Internal Medicine; Visit Provider Internal Medicine
DX: R31.29 Other microscopic hematuria (principal)
CPT/HCPCS: 74178; Q9967

== ENCOUNTER 2024-09-15 14:09 | Outpatient (AMB) | payer OTHER, SELFPAY ==
[2024-09-15 15:02] VITALS: BP 122/80; PULSE 75; O2SAT 95; BMI 27.6
--- NOTE | 2024-09-15 15:02 | MHC.OFFWIV ---
Intake Vital Signs 09/15/24 15:02 Height 5 ft 2 in Weight 151 lb BMI 27.6 BP 122/80 Blood Pressure Location Lt brachial Position Sitting Pulse 75 Pulse Source Pulse Oximeter Pulse Oximetry (%) 95 Oxygen Delivery Method Room Air Intake Visit Reasons: EP stomach concern, heavy breathing Intake Note: Patient here for stomach issues, burning sensation in chest which started yesterday. Patient Tobacco Use Status: Never used Tobacco Allergies doxycycline Allergy (Intermediate, Verified 09/15/24 15:03) Abdominal Pain alendronate sodium [From Fosamax] Adverse Reaction (Intermediate, Verified 09/15/24 15:03) Stomach Upset Do you need a note to return to daycare/school/sports/work: No HPI HPI Comments History of Present Illness Details History of Present Illness - The patient is a 64-year-old female presenting with slight cough, chest congestion and chest pressure which started yesterday. - Reports weakness in the legs, denying fever or chills. - denies sick contacts - Intermittent, mild cough is noted, with occasional shortness of breath, and no wheezing. - There are no reports of nausea, vomiting, or diarrhea. - The patient has a history of anxiety and uses a sleep aid from [employer]. - Experiences pruritus in her ears for which cortisone ointment is used, prescribed while in [place]. - Concerns about cardiac health are discussed, with symptoms not suggestive of acute coronary syndrome considering the absence of chest pain radiation or other indicative signs. - patient denies dizziness, lightheadedness, episodes of sweating, chest pain, chest pain which radiates to her back, neck pain, shoulder pain or arm pain. She does admit to having a history of anxiety, as noted above, and is wondering if her chest pain is related to her anxiety. - Headaches potentially related to muscle strain or tension are mentioned. Physical Exam General: Cooperative, healthy appearing, comfortable, no acute distress and well developed Orientation: Patient oriented x3 Limitations: No limitations Head: Normal to inspection, reports occasional headaches Ears: Hearing grossly normal bilaterally, some white substance noted, possibly cortisone ointment, no infection observed Nose: Normal external nose present Face and sinus: Normal facial exam, no pain on sinus palpation Eyes: Appearance normal, both eyes and all related structures Neck: Normal visual inspection and Yes full ROM Respiratory: Normal respiratory effort and able to speak in complete sentences. Clear to auscultation bilaterally Cardiovascular: Regular rate and rhythm. Normal S1 and S2 Skin: No rashes or lesions noted Neuro: Patient oriented x3 Extremities: Normal to inspection [facility] Medical History Hair loss Normal breast exam Vitamin D deficiency Normal Pap smear Microscopic hematuria Vitiligo Osteopenia Annual physical exam Surgical History H/O colonoscopy No pertinent past surgical history Family History Father Hypertension Mother No problems noted. Social History Housing: House Alcohol intake: never Patient Tobacco Use Status: Never used Tobacco e-Cigarette/Vaping Use: Never Used service: No Current occupational status: employed Cognitive needs: No Hearing needs: No Vision needs: No Review of Systems Const All systems reviewed & are unremarkable except as noted in HPI and below Physical Exam Vital Signs: Last Vital Signs Pulse 75 09/15/24 15:02 BP 122/80 09/15/24 15:02 Pulse Ox 95 09/15/24 15:02 Oxygen Delivery Method Room Air 09/15/24 15:02 BMI result Body Mass Index 27.6 Office Procedures EKG 12517-[id number], Complete Assessment & Plan Assessment & Plan (1) URI, acute: Code(s): J06.9 - Acute upper respiratory infection, unspecified Plan: as above (2) Chest pressure: Code(s): R07.89 - Other chest pain Plan: Constellation of symptoms have no clear diagnosis. We discussed signs and symptoms of a cardiac issue, at length, and when to call 911. Patient's vital signs are stable and she is very well-appearing in her physical exam was unremarkable. We did do an EKG in the office which showed NSR at 64 BPM. She does admit to having anxiety in his wondering if her chest pressure is related to her anxiety. I recommended she try talk therapy and/or ask her PCP about an SSRI for her anxiety as it seems to be interfering with her daily life. The patient is tested for influenza, COVID-19, and RSV to investigate potential viral causes for her symptoms. Given the clinical clarity of lung sounds and the absence of pneumonia indicators, the decision is made against an immediate chest X-ray. She is advised to use a decongestant like Mucinex to relieve chest congestion. Patient was informed and verbally consented to the use of an ambient scribe for clinic note documentation during this visit. Orders: Orders SARS-CoV2/FLU/RSV Today J06.9 - Acute upper respiratory infection, unspecified Coding Level of Care Code Est Pt Level 4 (21474) Diagnoses URI, acute J06.9 Chest pressure R07.89 CPT Codes EKG - CPT: 68029-[id number], Complete ([id number])
== END 2024-09-15 17:00 | disposition home or self-care (01) ==
PROVIDERS: PCP Internal Medicine; Visit Provider Physician Assistant
DX: J06.9 Acute upper respiratory infection, unspecified (principal); R07.89 Other chest pain

== ENCOUNTER 2024-09-15 14:09 | Outpatient (REF) | payer OTHER, SELFPAY ==
[2024-09-16 12:21] LABS: Influenza A PCR NEGATIVE (Negative); Influenza B PCR NEGATIVE (Negative); Resp Syncy Virus RNA Qual PCR NEGATIVE (Negative); SARS COV2 PCR INHOUSE NEGATIVE (Negative)
== END 2024-09-15 14:10 | disposition home or self-care (01) ==
LOC: HO.LAB 14:09
PROVIDERS: PCP Internal Medicine; Visit Provider Physician Assistant
DX: J06.9 Acute upper respiratory infection, unspecified (principal); R07.89 Other chest pain
CPT/HCPCS: 0241U; 93005

== ENCOUNTER 2024-09-27 08:43 | Outpatient (REF) | payer OTHER, SELFPAY ==
--- OUTSIDE RECORDS SUMMARY | 2024-09-27 08:59 | XMS_ITS | Continuity of Care Document ---
Author Organization [facility] ter Address [address] [place] [id number]- Care Team Providers Care Veterinarian Name Role Phone Venessa Henriquez MD Primary Care Physician [id number] Date(s): 09/19/24 - 09/19/[address] [address]- Encounter Diagnosis Chest pain(Final) - 09/19/24 Discharge Disposition: A-D/C Home Attending Physician: Raul Ley MD Admitting Physician: Raul Ley MD Referring Physician: Not on Staff, Referring MD Encounter Type: Disch ES Allergies, Adverse Reactions, Alerts No Known Medication Allergies Medications No Known Medications Results Radiology Reports * Exam Date Time Procedure Performing Provider Status 09/19/24 9:47 AM Chest 2 Views Frontal and Lat Zarina , Nuzhat; Auth (Verified) Notes: (Chest 2 Views Frontal and Lat) Reason For Exam: Shortness of Breath, CP;Other: RESULT: Chest 2 Views Frontal and Lat Chest 2 Views Frontal and Lat Hx of Present Illness: pt with c o intermittent midsternal chest pain x1 week seen at urgent care last wednesday neg ekg, [place] [facility] [place] reports negative work up, woke up with chest pain today which has now subsided, pt states scared bc she lives alone; Reason: Shortness of Breath, CP; ClinicalQuestion(s): Pneumonia COMPARISON: Multiple priors, most recently 09/17/2024. FINDINGS: LINES AND TUBES: None. LUNGS AND PLEURA: Clear lungs. Normal pulmonary vascularity. No pleural effusion. No pneumothorax. HEART, MEDIASTINUM AND AMPARO: Heart is normal in size. Normal mediastinal and hilar contour. BONES AND SOFT TISSUES: No acute abnormality. IMPRESSION: No acute abnormality.. I have personally reviewed the images and I agree with this report. WSN: [id number] Ordering Physician: Agatha Land Dictated By: Bo Cole DO Dictated Date/Time: 09/19/24 9:59 am Reviewed By: Jett Marques MD Signed By: Jett Marques MD Signed Date/Time: 09/19/24 10:04 am Transcribed By: MADHU Transcribed Date/Time: 09/19/24 9:56 am Vital Signs Most recent to oldest [Reference Range]: 1 2 3 Oxygen Saturation [94-100 %] 97 % (09/19/24 12:44 PM) 97 % (09/19/24 8:58 AM) 100 % (09/19/24 7:58 AM) Pulse Rate [55-90 bpm] 69 bpm (09/19/24 12:44 PM) 68 bpm (09/19/24 8:58 AM) 73 bpm (09/19/24 7:58 AM) Blood Pressure [90-138/55-84 mm Hg] 117/73mm Hg (09/19/24 12:44 PM) 156/87mm Hg *H* (09/19/24 8:58 AM) 177/98mm Hg *H* (09/19/24 7:58 AM) Respiratory Rate [16-30 br/min] 18 br/min (09/19/24 12:44 PM) 18 br/min (09/19/24 8:58 AM) 18 br/min (09/19/24 7:58 AM) Temperature [96.8-100.4 DegF] 98.4 DegF (09/19/24 12:44 PM) 97.7 DegF (09/19/24 7:58 AM) Mode of Delivery (Oxygen) Room air (09/19/24 12:44 PM) Room air (09/19/24 8:58 AM) Room air (09/19/24 7:58 AM) Blood pressure sites Arm, right (09/19/24 12:44 PM) Arm, left (09/19/24 8:58 AM) Arm, left (09/19/24 7:58 AM) Temperature Route Oral (09/19/24 12:44 PM) Oral (09/19/24 7:58 AM) EKG study * Event Display: ECG 12-Lead Authored Date: Please click on pdf link to open report * Event Display: ECG 12-Lead Authored Date: Ventricular Rate: 76 BPM Atrial Rate: 76 BPM P-R Interval: 196 ms QRS Duration: 92 ms Q-T Interval: 384 ms QTC Calculation(Bazett): 432 ms P [place]: 60 degrees R [place]: 71 degrees T [place]: 59 degrees Normal sinus rhythm Normal ECG When compared with ECG of 17-Sep-2024 10:31, No significant change was found Confirmed by ELENA FRY MD ([id number]) on 09/19/2024 12:07:23 PM [place]: ELENA FRY MD * Event Display: EKG Authored Date: * Event Display: EKG Authored Date: Patient Care team information Care Team Personnel Name: Venessa Henriquez MD Position: [facility] Physician - Primary Care Member Role: PCP Address: [address] Telecom: Name: Raghav Martel RN Position: [facility] RN Member Role: Primary Care Nurse Care Team Related Persons Name: THERESA HICKS Name: YULISSA HICKS Insurance Providers Guarantor name: ABBEY HICKS Health Plan Information #: 1 Payer: [facility] Member Number: [id number] Policy Number: NA Group Number: [id number] Health Plan Information #: 2 Payer: [facility] Member Number: [id number] Policy Number: NA Group Number: NA
--- OUTSIDE RECORDS SUMMARY | 2024-09-27 08:59 | XMS_ITS | Continuity of Care Document ---
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 Name Role Phone Venessa Henriquez MD Primary Care Physician [phone] Encounter [facility] Date(s): 09/17/24 - 09/17/[address] [address]- Encounter Diagnosis Anxiety(Final) - 09/17/24 GERD (gastroesophageal reflux disease)(Final) - 09/17/24 Shortness of breath on exertion(Final) - 09/17/24 Discharge Disposition: A-D/C Home Attending Physician: Lucita Law DO Admitting Physician: Lucita Law DO Referring Physician: Not on Staff, Referring MD Encounter Type: Disch ES Allergies, Adverse Reactions, Alerts No Known Medication Allergies Results Radiology Reports * Exam Date Time Procedure Performing Provider Status 09/17/24 11:30 AM Chest 2 Views Frontal and Lat Addi Hernandez; Auth (Verified) Notes: (Chest 2 Views Frontal and Lat) Reason For Exam: Chest Pain;Other: RESULT: Chest 2 Views Frontal and Lat Chest 2 Views Frontal and Lat Hx of Present Illness: pt reports intermittent chest pain and SOB x days. reports she feels scared and anxious. reports no hx, went to PCP on wednesday with no findings. covid flu rsv neg yesterday; Reason: Other:; Chest Pain; Clinical Question(s): Other: COMPARISON: 12/02/2023 FINDINGS: LINES AND TUBES: None. LUNGS AND PLEURA: Clear lungs. Normal pulmonary vascularity. No pleural effusion. No pneumothorax. HEART, MEDIASTINUM AND AMPARO: Heart is normal in size. Normal mediastinal and hilar contour. BONES AND SOFT TISSUES: No acute abnormality. IMPRESSION: No acute abnormality. WSN: [id number] Ordering Physician: Alonzo Gaines Dictated By: Danuta Caro MD Dictated Date/Time: 09/17/24 11:38 a Reviewed By: Danuta Caro MD Signed By: Danuta Caro MD Signed Date/Time: 09/17/24 11:38 am Transcribed By: MADHU Transcribed Date/Time: 09/17/24 11:38 am Vital Signs Most recent to oldest [Reference Range]: 1 2 3 Height 163 cm (09/17/24 10:28 AM) Weight 68.5 kg (09/17/24 10:28 AM) Oxygen Saturation [94-100 %] 99 % (09/17/24 5:12 PM) 98 % (09/17/24 4:16 PM) 97 % (09/17/24 11:20 AM) Pulse Rate [55-90 bpm] 71 bpm (09/17/24 5:12 PM) 73 bpm (09/17/24 4:16 PM) 77 bpm (09/17/24 11:20 AM) Body Mass Index [18.5-24.99 kg/m2] 25.78 kg/m2 *H* (09/17/24 10:28 AM) Blood Pressure [90-138/55-84 mm Hg] 137/80mm Hg (09/17/24 5:12 PM) 158/87mm Hg *H* (09/17/24 4:16 PM) 153/86mm Hg *H* (09/17/24 11:20 AM) Respiratory Rate [16-30 br/min] 18 br/min (09/17/24 5:12 PM) 16 br/min (09/17/24 4:16 PM) 19 br/min (09/17/24 11:20 AM) Temperature [96.8-100.4 DegF] 98 DegF (09/17/24 4:16 PM) 98.0 DegF (09/17/24 10:28 AM) Mode of Delivery (Oxygen) Room air (09/17/24 5:12 PM) Room air (09/17/24 4:16 PM) Room air (09/17/24 11:20 AM) Blood pressure sites Arm, left (09/17/24 5:12 PM) Arm, left (09/17/24 4:16 PM) Arm, left (09/17/24 11:20 AM) Temperature Route Oral (09/17/24 4:16 PM) Oral (09/17/24 10:28 AM) Dry Weight 68.5 kg (09/17/24 10:28 AM) Weight Obtained Via Patient/family state d (09/17/24 10:28 AM) Dry Weight Obtained Via Patient/family s tated (09/17/24 10:28 AM) EKG study * Event Display: ECG 12-Lead Authored Date: Please click on pdf link to open report * Event Display: ECG 12-Lead Authored Date: Ventricular Rate: 75 BPM Atrial Rate: 75 BPM P-R Interval: 182 ms QRS Duration: 90 ms Q-T Interval: 388 ms QTC Calculation(Bazett): 433 ms P [place]: 58 degrees R [place]: 65 degrees T [place]: 52 degrees Normal sinus rhythm Normal ECG When compared with ECG of 02-Dec-2023 03:07, No significant change was found Confirmed by SARA DANG MD ([id number]) on 09/17/2024 5:31:52 PM [place]: SARA DANG MD Patient Care team information Care Team Personnel Name: Venessa Henriquez MD Position: [facility] Physician - Primary Care Member Role: PCP Address: [address] [place] [address] Telecom: Name: Raghav Martel RN Position: S RN Member Role: Primary Care Nurse Care Team Related Persons Name: THERESA HICKS Name: YULISSA HICKS Insurance Providers Guarantor name: ABBEY HICKS Health Plan Information #: 1 Payer: [employer] NON BHP HMO Member Number: [id number] Policy Number: NA Group Number: [id number] Health Plan Information #: 2 Payer: [employer] FF NON BHP HMO Member Number: [id number] Policy Number: NA Group Number: [id number]
[2024-09-27 10:50] LABS: MANUAL DIFF FLAG NO
[2024-09-27 10:53] LABS: Basophils Absolute Auto 0.1 X10*3/uL (0.0-0.2); Basophils Percent Auto 1.1 % (0-2); Eosinophils Absolute Auto 0.2 X10*3/uL (0.0-0.4); Hematocrit 37.7 % (37.0-47.0); Hemoglobin 12.6 g/dl (12.0-16.0); Imm Gran Abs Auto 0.01 X10*3/uL (0.00-0.03); Imm Gran Pct Auto 0.2 % (0.0-0.4); Lymphocytes Absolute Auto 1.7 X10*3/uL (1.2-4.9); Lymphocytes Percent Auto 37.9 % (20-40); Mean Corpuscular HGB Conc 33.4 g/dl (31.0-35.0); Mean Corpuscular Hemoglobin 30.2 pg (27.0-33.0); Mean Corpuscular Volume 90.4 fL (80.0-98.0); Mean Platelet Volume 10.1 fL (9.4-12.3); Monocytes Absolute Auto 0.4 X10*3/uL (0.1-1.2); Monocytes Percent Auto 8.1 % (2-11); Neutrophils Absolute Auto 2.2 x10*3/uL (2.0-8.3); Neutrophils Percent Auto 48.7 % (45-73); Platelet Count 193 X10*3/uL (160-400); Red Blood Count 4.17 X10*6/uL (4.20-5.50); White Blood Count 4.5 X10*3/uL (4.8-10.8)
[2024-09-27 11:20] LABS: Alanine Aminotransferase 19 U/L (0-31); Alkaline Phosphatase 70 U/L (39-117); Anion Gap 8 (12-20); Aspartate Amino Transferase 23 U/L (5-31); Bilirubin Total 0.5 mg/dL (0.0-1.0); Blood Urea Nitrogen 13 mg/dL (9-16); Calcium 9.6 mg/dL (8.4-10.2); Carbon Dioxide 28 mmol/L (22-29); Chloride 108 mmol/L (96-108); Cholesterol 164 mg/dL (<200); Estimated Glomerular Filt Rate > 60; Glucose Random 88 mg/dL (60-115); HDL Cholesterol 52 mg/dL (>40); LDL Cholesterol Calculated 99 mg/dL (<100); Potassium 3.7 mmol/L (3.3-5.1); Sodium 140 mmol/L (135-145); Total Protein 6.9 g/dL (6.5-8.0); Triglycerides 68 mg/dL (<150)
[2024-09-27 11:26] LABS: TSH reflex Free T4 1.19 uIU/mL (0.32-4.0); Vitamin D 25-OH Total 93.9 ng/mL (>30)
== END 2024-09-27 08:44 | disposition home or self-care (01) ==
LOC: HO.HMGCLDS 08:43
PROVIDERS: PCP Internal Medicine; Visit Provider Internal Medicine
DX: Z00.00 Encounter for general adult medical examination without abnormal findings (principal); I34.0 Nonrheumatic mitral (valve) insufficiency; M81.0 Age-related osteoporosis without current pathological fracture; E55.9 Vitamin D deficiency, unspecified
CPT/HCPCS: 36415; 80053; 80061; 82306; 84443; 85025

== ENCOUNTER 2024-10-02 12:39 | Outpatient (AMB) | payer OTHER, SELFPAY ==
[2024-10-02 12:52] VITALS: BP 124/80; PULSE 66; O2SAT 96; BMI 27.4
--- NOTE | 2024-10-02 12:52 | A.OFFPC_ITS ---
Vital Signs 10/02/24 12:52 Height 5 ft 2 in Weight 150 lb BMI 27.4 BP 124/80 Blood Pressure Location Rt brachial Position Sitting Pulse 66 Pulse Source Pulse Oximeter Pulse Oximetry (%) 96 Oxygen Delivery Method Room Air Intake Visit Reasons: Annual PE Intake Note: Pt is here today for PE. Allergies doxycycline Allergy (Intermediate, Verified 10/02/24 13:11) Abdominal Pain alendronate sodium [From Fosamax] Adverse Reaction (Intermediate, Verified 10/02/24 13:11) Stomach Upset Medication List - Last Reconciled 10/02/24 by Venessa Henriquez MD zgqhskkg-vcx-[id number] acid-lutein 400-250 mcg (Centrum Silver) 1 tab PO DAILY omeprazole 40 mg PO DAILY Tobacco use date assessed: 10/02/24 Fall risk assessment: No Falls in past year Last assessed Fall Risk: 10/02/24 Dental Screening Dental Screen Date: 10/02/24 Did you have a dental visit in the last 12 months?: No Did you have a dental problem in the last 6 months where you did not have access to dental care?: No Was dental information given to patient?: Patient declined HPI Annual PE HPI Details Pt presents for PE. Pt c/o recurrent burning sensation in abd and chest on and off. Pt went to [facility] ER twice 2 weeks. Pt had negative cardiac workup at [facility]. [facility] Medical History (Updated 10/02/24 @ 15:14 by Venessa Henriquez MD) Normal breast exam Vitamin D deficiency Normal Pap smear Microscopic hematuria Vitiligo Osteopenia Annual physical exam Surgical History (Updated 10/02/24 @ 15:14 by Venessa Henriquez MD) H/O colonoscopy No pertinent past surgical history Family History Father Hypertension Mother No problems noted. Social History Housing: House Alcohol intake: never Patient Tobacco Use Status: Never used Tobacco e-Cigarette/Vaping Use: Never Used service: No Current occupational status: employed Cognitive needs: No Hearing needs: No Vision needs: No Questionnaire PHQ-9 Over the last 2 weeks, how often have you been bothered by any of the following problems? 1. Little interest or pleasure in doing things: not at all 2. Feeling down, depressed, or hopeless: not at all 3. Trouble falling or staying asleep, or sleeping too much: not at all 4. Feeling tired or having little energy: not at all 5. Poor appetite or overeating: not at all 6. Feeling bad about yourself - or that you are a failure or have let yourself or your family down: not at all 7. Trouble concentrating on things, such as reading the newspaper or watching television: not at all 8. Moving or speaking so slowly that other people could have noticed. Or the opposite - being so fidgety or restless that you have been moving around a lot more than usual: not at all 9. Thoughts that you would be better off or of hurting yourself in some way: not at all Total score: 0 Depression Screening Interpretation: Negative Depression Screening Done: Yes 41739 - PHQ-9 Billing: Yes Source: Developed by Drs. Paul Hayden, Ellie Marquez, Dean Luna and colleagues, with an educational danae from [employer]. Thrive Questionnaire Date Thrive assessed: 10/02/24 I am a: Patient What is your living situation today?: I have a steady place to live Within the past 12 months, did the food you bought not last and you didn't have the money to get more?: Never true Within the past 12 months, did you worry whether your food would run out before you got money to buy more?: Never true Do you have trouble paying for medicines?: No Do you have trouble getting transportation to medical appointments?: No Do you have trouble paying your heating and electricity bill?: No Do you have trouble taking care of your child, family member or friend?: No Do you have trouble with day-to-day activities such as bathing, preparing meals, shopping, managing finances, etc.?: No Are you currently unemployed and looking for a job?: No Are you interested in more education?: No Please select the resources that you would like help with: None THRIVE Score: 0 AUDIT C Alcohol Use Questionnaire (AUDIT-C) 1. How often do you have a drink containing alcohol?: Never 3. How often do you have six or more drinks on one occasion?: Never Total Score: 0 SONU-7 AMB Questionnaire SONU-7 Date SONU - 7 assessed: 10/02/24 Feeling nervous, anxious, or on edge: 0 = Not at all Not being able to stop or control worryin = Not at all Worrying too much about different things: 0 = Not at all Trouble relaxin = Not at all Being so restless that it is hard to sit still: 0 = Not at all Becoming easily annoyed or irritable: 0 = Not at all Feeling afraid as if something awful might happen: 0 = Not at all Total SONU-7 score (0-4 normal; 5-9 mild; 10-14 moderate; 15-21 severe): 0 Source: Developed by Drs. Paul Hayden, Ellie Marquez, Dean Luna and colleagues, with an educational danae from [employer]. SONU-7 Assessment Billing SONU-7 Assessment Tool: SONU-7 Assessment 25000 Review of Systems Const All systems reviewed & are unremarkable except as noted in HPI and below Reports no additional complaints Eyes Reports no additional complaints ENT Reports no additional complaints Card Reports no additional complaints Resp Reports no additional complaints GI Reports no additional complaints Reports no additional complaints Physical exam (Primary Care) Vital Signs: Last Vital Signs Pulse 66 10/02/24 12:52 BP 124/80 10/02/24 12:52 Pulse Ox 96 10/02/24 12:52 Oxygen Delivery Method Room Air 10/02/24 12:52 BMI result Body Mass Index 27.4 Tobacco/Smoking Status: Tobacco use Status Tobacco use date assessed 10/02/24 10/02/24 12:54 Patient Tobacco Use Status Never used Tobacco 10/02/24 12:54 e-Cigarette/Vaping Use Never Used 10/02/24 12:54 PHQ-9: PHQ-9 Score PHQ-9: Total score 0 10/02/24 13:15 Depression Screening Interpretation: Negative Thrive Assessment: Date of Thrive Assessment Date Thrive assessed 10/02/24 10/02/24 13:15 Const General: no acute distress HENMT Head: Yes normal to inspection Ears: hearing grossly normal bilaterally Face and sinus: Yes normal facial exam Throat: Yes posterior oropharynx normal Eyes General: appearance normal, both eyes and all related structures Neck Neck: Yes no lymphadenopathy and Yes supple Resp Effort & Inspection: normal respiratory effort Auscultation: clear to auscultation bilaterally Cardio Rhythm: regular rhythm Heart sounds: S1 normal heart sound present and S2 normal heart sound present GI Inspection: Yes normal to inspection Palpation (GI): Soft to palpation Percussion: Yes normal to percussion Auscultation: normal bowel sounds Coding Level of Care Code Est Pt Prev Care 40-64y([address]) Diagnoses Osteoporosis M81.0 Annual physical exam Z00.00 H/O colonoscopy Z98.890 Anxiety F41.9 Additional Codes SONU-7 Assessment Billing - SONU-7 Assessment Tool: SONU-7 Assessment 73228 ([id number]) PHQ-9 - 35638 - PHQ-9 Billing: Yes ([id number]) Assessment & Plan Assessment & Plan (1) Osteoporosis: Comment: DEXA 08/27 T score -2.7. Fosamax started on 09/28 , patient could not tolerate due to stomach upset, will continue vitamin-D and exercise and repeat DEXA in 09/30 Code(s): M81.0 - Age-related osteoporosis without current pathological fracture Category: Medical Plan: Continue vitamin-D regular exercise patient declined repeat DEXA (2) Annual physical exam: Code(s): Z00.00 - Encounter for general adult medical examination without abnormal findings Category: Medical Plan: Well-balanced diet regular physical activity stress management discussed with the patient. Trial of PPI for chronic GERD (3) H/O colonoscopy: Comment: 02/2011, 08/27 Code(s): Z98.890 - Other specified postprocedural states Category: Surgical Plan: Up-to-date with colonoscopy (4) Anxiety: Code(s): F41.9 - Anxiety disorder, unspecified Category: Medical Plan: Patient declined medications she is interested in starting counseling. Follow- up in 2 months Medications: New omeprazole 40 mg PO DAILY 30 caps 0RF
== END 2024-10-02 14:07 | disposition home or self-care (01) ==
PROVIDERS: PCP Internal Medicine; Visit Provider Internal Medicine
DX: M81.0 Age-related osteoporosis without current pathological fracture (principal); Z00.00 Encounter for general adult medical examination without abnormal findings; Z98.890 Other specified postprocedural states; F41.9 Anxiety disorder, unspecified

== ENCOUNTER → 2024-10-02 12:39 | Outpatient (BNVA) | payer OTHER, SELFPAY | PROVIDERS: PCP Internal Medicine; Visit Provider Internal Medicine | DX: Z00.00 Encounter for general adult medical examination without abnormal findings (principal); M81.0 Age-related osteoporosis without current pathological fracture; F41.9 Anxiety disorder, unspecified | CPT/HCPCS: 96127 ==

== ENCOUNTER 2024-12-05 11:01 | Outpatient (AMB) | payer OTHER, SELFPAY ==
[2024-12-05 11:11] VITALS: BP 134/82; PULSE 75; RESP 18; TEMP 36.9; O2SAT 96; BMI 25.8
--- NOTE | 2024-12-05 11:11 | MHC.PC.OV ---
Vital Signs 12/05/24 11:11 Height 5 ft 2 in Weight 141 lb BMI 25.8 BP 134/82 Blood Pressure Location Lt brachial Position Sitting Respiration 18 Pulse 75 Pulse Source Pulse Oximeter Temp 98.5 F Temp Source Oral Pulse Oximetry (%) 96 Oxygen Delivery Method Room Air Intake Visit Reasons: 2 months f/up - see comments Intake Note: Pt is here today for 2 months follow up visit. Allergies doxycycline Allergy (Intermediate, Verified 12/05/24 11:11) Abdominal Pain alendronate sodium [From Fosamax] Adverse Reaction (Intermediate, Verified 12/05/24 11:11) Stomach Upset Medication List - Last Reconciled 12/05/24 by Venessa Henriquez MD famotidine 20 mg PO BID qfdbzapb-dkx-ojdwu acid-lutein 400-250 mcg (Centrum Silver) 1 tab PO DAILY sertraline 50 mg PO DAILY Tobacco use date assessed: 12/05/24 Fall risk assessment: No Falls in past year Last assessed Fall Risk: 12/05/24 Dental Screening Dental Screen Date: 12/05/24 Did you have a dental visit in the last 12 months?: No Did you have a dental problem in the last 6 months where you did not have access to dental care?: No Was dental information given to patient?: Patient declined HPI 2 months f/up - see comments HPI Details Pt presents for f/u anxiety. Patient complains of persistent anxiety decreased appetite nausea insomnia due to stress related to work. She has difficulty with a new computer system and has difficulty concentrating. She denies suicide ideation but lost 10 lb since the last visit. She denies change in bowel habits hematochezia melena. Patient had negative colonoscopy 3 years ago. Pt's insurance doesn't cover [place] speaking counselor. [facility] Medical History (Updated 12/05/24 @ 11:55 by Venessa Henriquez MD) Normal breast exam Vitamin D deficiency Normal Pap smear Microscopic hematuria Vitiligo Osteopenia Annual physical exam Surgical History (Updated 10/02/24 @ 15:14 by Venessa Henriquez MD) H/O colonoscopy No pertinent past surgical history Family History Father Hypertension Mother No problems noted. Social History Housing: House Alcohol intake: never Patient Tobacco Use Status: Never used Tobacco e-Cigarette/Vaping Use: Never Used service: No Current occupational status: employed Cognitive needs: No Hearing needs: No Vision needs: No Questionnaire Thrive Questionnaire Date Thrive assessed: 10/02/24 AUDIT C Alcohol Use Questionnaire (AUDIT-C) 1. How often do you have a drink containing alcohol?: Never 3. How often do you have six or more drinks on one occasion?: Never Total Score: 0 SONU-7 AMB Questionnaire SONU-7 Date SONU - 7 assessed: 12/05/24 Source: Developed by Drs. Paul Hayden, Ellie Marquez, Dean Luna and colleagues, with an educational danae from [employer]. Review of Systems Const All systems reviewed & are unremarkable except as noted in HPI and below Eyes Reports no additional complaints ENT Reports no additional complaints Card Reports no additional complaints Resp Reports no additional complaints GI Reports no additional complaints Reports no additional complaints Physical exam (Primary Care) Vital Signs: Last Vital Signs Temp 98.5 F 12/05/24 11:11 Pulse 75 12/05/24 11:11 Resp 18 12/05/24 11:11 BP 134/82 12/05/24 11:11 Pulse Ox 96 12/05/24 11:11 Oxygen Delivery Method Room Air 12/05/24 11:11 BMI result Body Mass Index 25.8 Tobacco/Smoking Status: Tobacco use Status Tobacco use date assessed 12/05/24 12/05/24 11:15 Patient Tobacco Use Status Never used Tobacco 12/05/24 11:15 e-Cigarette/Vaping Use Never Used 12/05/24 11:15 Thrive Assessment: Date of Thrive Assessment Date Thrive assessed 10/02/24 12/05/24 11:15 Const General: no acute distress HENMT Head: Yes normal to inspection Neck Neck: Yes supple Resp Effort & Inspection: normal respiratory effort Auscultation: clear to auscultation bilaterally Cardio Rhythm: regular rhythm Heart sounds: S1 normal heart sound present and S2 normal heart sound present GI Inspection: Yes normal to inspection Palpation (GI): Soft to palpation Percussion: Yes normal to percussion Auscultation: normal bowel sounds Coding Level of Care Code Est Pt Level 4 (27636) Diagnoses Anxiety F41.9 Gastritis K29.70 Assessment & Plan Assessment & Plan (1) Anxiety: Code(s): F41.9 - Anxiety disorder, unspecified Category: Medical Plan: Stress management and mindfulness discussed with the patient's sertraline 25 mg for the 1st week then increase to 50 mg a day will be started. Patient will be out of work for 2 months (2) Gastritis: Code(s): K29.70 - Gastritis, unspecified, without bleeding Category: Medical Plan: Continue famotidine Medications: New sertraline 1/2 tabl qd x 1 week, then 1 qd 50 mg PO DAILY 90 tabs 1RF
== END 2024-12-05 11:57 | disposition home or self-care (01) ==
LOC: HO.HMCC 11:01
PROVIDERS: PCP Internal Medicine; Visit Provider Internal Medicine
DX: F41.9 Anxiety disorder, unspecified (principal); K29.70 Gastritis, unspecified, without bleeding

== ENCOUNTER 2024-12-11 13:24 | Outpatient (AMB) | payer OTHER, SELFPAY ==
--- NOTE | 2024-12-11 13:27 | MHC.PC.OV ---
Vital Signs 12/11/24 13:32 Height 5 ft 2 in Weight 141 lb BMI 25.8 BP 134/80 Blood Pressure Location Lt brachial Position Sitting Respiration 20 Pulse 82 Pulse Source Pulse Oximeter Temp 98.5 F Temp Source Oral Pulse Oximetry (%) 96 Oxygen Delivery Method Room Air Intake Visit Reasons: discuss medication Intake Note: Pt is here today for a follow up visit to discuss medication. Allergies doxycycline Allergy (Intermediate, Verified 12/11/24 13:46) Abdominal Pain alendronate sodium [From Fosamax] Adverse Reaction (Intermediate, Verified 12/11/24 13:46) Stomach Upset sertraline Adverse Reaction (Verified 12/11/24 15:32) Abdominal Pain Medication List - Last Reconciled 12/11/24 by Venessa Henriquez MD knbyiida-oav-rykyl acid-lutein 400-250 mcg (Centrum Silver) 1 tab PO DAILY omeprazole 40 mg PO DAILY Tobacco use date assessed: 12/11/24 Fall risk assessment: No Falls in past year Last assessed Fall Risk: 12/11/24 Dental Screening Dental Screen Date: 12/05/24 HPI discuss medication HPI Details Patient presents for follow-up of anxiety. She took 1 tablet of sertraline and developed abdominal pain and diarrhea. Patient has not been working for 1 week and reports feeling less anxious but still reports epigastric abdominal discomfort worse after eating with some nausea and decreased appetite. Patient denies change in bowel habits hematochezia melena. [facility] Medical History (Updated 12/11/24 @ 14:22 by Venessa Henriquez MD) Normal breast exam Vitamin D deficiency Normal Pap smear Microscopic hematuria Vitiligo Osteopenia Annual physical exam Surgical History H/O colonoscopy No pertinent past surgical history Family History Father Hypertension Mother No problems noted. Social History Housing: House Alcohol intake: never Patient Tobacco Use Status: Never used Tobacco e-Cigarette/Vaping Use: Never Used service: No Current occupational status: employed Cognitive needs: No Hearing needs: No Vision needs: No Questionnaire Thrive Questionnaire Date Thrive assessed: 10/02/24 SONU-7 AMB Questionnaire SONU-7 Date SONU - 7 assessed: 12/05/24 Source: Developed by Drs. Paul Hayden, Ellie Marquez, Dean Luna and colleagues, with an educational danae from [employer]. Review of Systems Const All systems reviewed & are unremarkable except as noted in HPI and below ENT Reports no additional complaints Card Reports no additional complaints Resp Reports no additional complaints GI Reports no additional complaints Reports no additional complaints Physical exam (Primary Care) Vital Signs: Last Vital Signs Temp 98.5 F 12/11/24 13:32 Pulse 82 12/11/24 13:32 Resp 20 12/11/24 13:32 BP 134/80 12/11/24 13:32 Pulse Ox 96 12/11/24 13:32 Oxygen Delivery Method Room Air 12/11/24 13:32 BMI result Body Mass Index 25.8 Tobacco/Smoking Status: Tobacco use Status Tobacco use date assessed 12/11/24 12/11/24 13:32 Patient Tobacco Use Status Never used Tobacco 12/11/24 13:32 e-Cigarette/Vaping Use Never Used 12/11/24 13:28 Thrive Assessment: Date of Thrive Assessment Date Thrive assessed 10/02/24 12/11/24 13:28 Const General: no acute distress HENMT Head: Yes normal to inspection Eyes General: appearance normal, both eyes and all related structures Resp Effort & Inspection: normal respiratory effort Auscultation: clear to auscultation bilaterally Cardio Rhythm: regular rhythm Heart sounds: S1 normal heart sound present and S2 normal heart sound present GI Inspection: Yes normal to inspection Palpation (GI): Soft to palpation Percussion: Yes normal to percussion Auscultation: normal bowel sounds Coding Level of Care Code Est Pt Level 4 (84839) Diagnoses UTI (urinary tract infection) N39.0 Gastritis K29.70 Anxiety F41.9 Assessment & Plan Assessment & Plan (1) UTI (urinary tract infection): Code(s): N39.0 - Urinary tract infection, site not specified Category: Medical Plan: Check UA and culture (2) Gastritis: Code(s): K29.70 - Gastritis, unspecified, without bleeding Category: Medical Plan: Omeprazole 40 mg daily for 1 month is prescribed. H pylori stool antigen will be checked. If patient's symptoms persist she will be referred to GI for endoscopy (3) Anxiety: Code(s): F41.9 - Anxiety disorder, unspecified Category: Medical Plan: Stress management discussed with the patient. She will start counseling. Patient is not interested in starting medications Orders: Orders UA w Microscopic Today N39.0 - Urinary tract infection, site not specified Urine Culture Today N39.0 - Urinary tract infection, site not specified Complete Blood Count Auto Diff Today K29.70 - Gastritis, unspecified, without bleeding H pylori Ag Stool Today K29.70 - Gastritis, unspecified, without bleeding Comprehensive Met. Panel Today R10.9 - Unspecified abdominal pain Medications: New omeprazole 40 mg PO DAILY 90 caps 0RF
[2024-12-11 13:32] VITALS: BP 134/80; PULSE 82; RESP 20; TEMP 36.9; O2SAT 96; BMI 25.8
== END 2024-12-11 15:03 | disposition home or self-care (01) ==
LOC: HO.HMCC 13:25
PROVIDERS: PCP Internal Medicine; Visit Provider Internal Medicine
DX: N39.0 Urinary tract infection, site not specified (principal); K29.70 Gastritis, unspecified, without bleeding; F41.9 Anxiety disorder, unspecified

== ENCOUNTER 2024-12-11 13:24 | Outpatient (REF) | payer OTHER, SELFPAY ==
[2024-12-11 16:14] LABS: MANUAL DIFF FLAG NO
[2024-12-11 16:15] LABS: Appearance Urine Clear; Color Urine Yellow; Glucose Urine UA Negative (Negative); Leukocyte Esterase Urine Negative (Negative); Nitrite Urine Negative (Negative); PH 7.5 (5.0-9.0); Specific Gravity - Urine <= 1.005 (1.005-1.025); UMIC TRIGGER UA YES; Urine Blood Trace (Negative); Urine Ketones Negative (Negative); Urine Protein Negative (Neg-Trace)
[2024-12-11 16:17] LABS: Basophils Percent Auto 0.6 % (0-2); Eosinophils Absolute Auto 0.1 X10*3/uL (0.0-0.4); Eosinophils Percent Auto 1.2 % (0-4); Hematocrit 37.8 % (37.0-47.0); Hemoglobin 12.7 g/dl (12.0-16.0); Imm Gran Abs Auto 0.02 X10*3/uL (0.00-0.03); Imm Gran Pct Auto 0.4 % (0.0-0.4); Lymphocytes Absolute Auto 1.7 X10*3/uL (1.2-4.9); Lymphocytes Percent Auto 34.1 % (20-40); Mean Corpuscular HGB Conc 33.6 g/dl (31.0-35.0); Mean Corpuscular Hemoglobin 30.3 pg (27.0-33.0); Mean Corpuscular Volume 90.2 fL (80.0-98.0); Mean Platelet Volume 10.4 fL (9.4-12.3); Monocytes Absolute Auto 0.5 X10*3/uL (0.1-1.2); Monocytes Percent Auto 9.1 % (2-11); Neutrophils Absolute Auto 2.8 x10*3/uL (2.0-8.3); Neutrophils Percent Auto 54.6 % (45-73); Platelet Count 211 X10*3/uL (160-400); Red Blood Count 4.19 X10*6/uL (4.20-5.50); Red Cell Distribution Width 11.9 % (11.0-16.0); White Blood Count 5.1 X10*3/uL (4.8-10.8)
[2024-12-11 16:18] LABS: Bacteria Urine None Seen (None Seen); Hyaline Casts Urine 0-2 /LPF (0-2); Squamous Epithelial Cell Urine 0-2 /HPF (0-2); WBC Urine 0-5 /HPF (0-5)
[2024-12-11 18:56] LABS: Alanine Aminotransferase 13 U/L (0-31); Albumin Level 4.3 g/dL (3.5-5.0); Alkaline Phosphatase 59 U/L (39-117); Anion Gap 11 (12-20); Aspartate Amino Transferase 25 U/L (5-31); Bilirubin Total 0.7 mg/dL (0.0-1.0); Blood Urea Nitrogen 9 mg/dL (9-16); Calcium 9.5 mg/dL (8.4-10.2); Carbon Dioxide 26 mmol/L (22-29); Chloride 108 mmol/L (96-108); Estimated Glomerular Filt Rate > 60; Glucose Random 93 mg/dL (60-115); Potassium 4.1 mmol/L (3.3-5.1); Sodium 141 mmol/L (135-145); Total Protein 6.9 g/dL (6.5-8.0)
== END 2024-12-11 13:25 | disposition home or self-care (01) ==
LOC: HO.HMGCLDS 13:24
PROVIDERS: PCP Internal Medicine; Visit Provider Internal Medicine
DX: N39.0 Urinary tract infection, site not specified (principal); R10.9 Unspecified abdominal pain; K29.70 Gastritis, unspecified, without bleeding
CPT/HCPCS: 36415; 80053; 81001; 85025; 87086

== ENCOUNTER 2024-12-12 10:05 | Outpatient (REF) | payer OTHER, SELFPAY | END 2024-12-12 10:06 | disposition home or self-care (01) | LOC: HO.HMGCLNP 10:05 | PROVIDERS: PCP Internal Medicine; Visit Provider Internal Medicine | DX: K29.70 Gastritis, unspecified, without bleeding (principal) | CPT/HCPCS: 87338 ==

== ENCOUNTER 2025-02-12 12:29 | Outpatient (AMB) | payer OTHER, SELFPAY ==
--- NOTE | 2025-02-12 13:13 | A.OFFPC_ITS ---
Vital Signs 02/12/25 13:14 Height 5 ft 2 in Weight 139 lb BMI 25.4 BP 126/74 Blood Pressure Location Lt brachial Position Sitting Respiration 18 Pulse 66 Pulse Source Pulse Oximeter Temp 97.9 F Temp Source Oral Pulse Oximetry (%) 98 Oxygen Delivery Method Room Air Intake Visit Reasons: 6 weeks f/up Allergies doxycycline Allergy (Intermediate, Verified 02/12/25 13:14) Abdominal Pain alendronate sodium [From Fosamax] Adverse Reaction (Intermediate, Verified 02/12/25 13:14) Stomach Upset sertraline Adverse Reaction (Verified 02/12/25 13:14) Abdominal Pain Medication List - Last Reconciled 02/12/25 by Venessa Henriquez MD [id number] acid-lutein 400-250 mcg (Centrum Silver) 1 tab PO DAILY omeprazole 40 mg PO DAILY Tobacco use date assessed: 02/12/25 Fall risk assessment: No Falls in past year Last assessed Fall Risk: 02/12/25 Dental Screening Dental Screen Date: 12/05/24 HPI 6 weeks f/up HPI Details Pt presents for f/u of chronic anxiety and intermittent abdominal pain with negative GI workup. Patient has been taking omeprazole for 1 month and reports improving of her intermittent epigastric discomfort. Patient denies nausea vomiting food regurgitation hematochezia melena. She has been under lot of stress related to her work situation. Patient has been seeing counselor but declined taking medications [facility] Medical History (Updated 02/12/25 @ 16:18 by Venessa Henriquez MD) Anxiety Abdominal pain Normal breast exam Vitamin D deficiency Normal Pap smear Microscopic hematuria Vitiligo Osteopenia Annual physical exam Surgical History H/O colonoscopy No pertinent past surgical history Family History Father Hypertension Mother No problems noted. Social History Housing: House Alcohol intake: never Patient Tobacco Use Status: Never used Tobacco e-Cigarette/Vaping Use: Never Used service: No Current occupational status: employed Cognitive needs: No Hearing needs: No Vision needs: No Questionnaire Thrive Questionnaire Date Thrive assessed: 10/02/24 SONU-7 AMB Questionnaire SONU-7 Date SONU - 7 assessed: 12/05/24 Source: Developed by Drs. Paul Hayden, Ellie Marquez, Dean Luna and colleagues, with an educational danae from [employer]. Review of Systems Const All systems reviewed & are unremarkable except as noted in HPI and below Eyes Reports no additional complaints ENT Reports no additional complaints Card Reports no additional complaints Resp Reports no additional complaints GI Reports no additional complaints Reports no additional complaints Physical exam (Primary Care) Vital Signs: Last Vital Signs Temp 97.9 F 02/12/25 13:14 Pulse 66 02/12/25 13:14 Resp 18 02/12/25 13:14 BP 126/74 02/12/25 13:14 Pulse Ox 98 02/12/25 13:14 Oxygen Delivery Method Room Air 02/12/25 13:14 BMI result Body Mass Index 25.4 Tobacco/Smoking Status: Tobacco use Status Tobacco use date assessed 02/12/25 02/12/25 13:17 Patient Tobacco Use Status Never used Tobacco 02/12/25 13:17 e-Cigarette/Vaping Use Never Used 02/12/25 13:17 Thrive Assessment: Date of Thrive Assessment Date Thrive assessed 10/02/24 02/12/25 13:17 Const General: no acute distress Neck Neck: Yes supple Resp Effort & Inspection: normal respiratory effort Auscultation: clear to auscultation bilaterally Cardio Rhythm: regular rhythm Heart sounds: S1 normal heart sound present and S2 normal heart sound present GI Inspection: Yes normal to inspection Palpation (GI): Soft to palpation Percussion: Yes normal to percussion Auscultation: normal bowel sounds Coding Level of Care Code Est Pt Level 3 (59742) Diagnoses Abdominal pain R10.9 Anxiety F41.9 Assessment & Plan Assessment & Plan (1) Abdominal pain: Comment: Normal colonoscopy in 2021, abdominal pelvic CT June 2024 normal. STOOL H PYLORI NEGATIVE 12/2024 Code(s): R10.9 - Unspecified abdominal pain Category: Medical Plan: For persistent abdominal pain question of IBS dicyclomine will be prescribed. Patient will continue omeprazole for 2 months (2) Anxiety: Comment: Intolerant to sertraline established with a counselor Code(s): F41.9 - Anxiety disorder, unspecified Category: Medical Plan: Patient will continue counseling and stress management discussed with the patient , she declined taking medications Medications: New dicyclomine 10 mg PO TID 90 caps 0RF Refilled omeprazole 40 mg PO DAILY 90 caps 0RF
[2025-02-12 13:14] VITALS: BP 126/74; PULSE 66; RESP 18; TEMP 36.6; O2SAT 98; BMI 25.4
== END 2025-02-12 14:13 | disposition home or self-care (01) ==
LOC: HO.HMCC 12:29
PROVIDERS: PCP Internal Medicine; Visit Provider Internal Medicine
DX: R10.9 Unspecified abdominal pain (principal); F41.9 Anxiety disorder, unspecified

== ENCOUNTER → 2025-02-12 12:29 | Outpatient (BNVA) | payer OTHER, SELFPAY | PROVIDERS: PCP Internal Medicine; Visit Provider Internal Medicine | DX: Z13.89 Encounter for screening for other disorder (principal) ==

== ENCOUNTER 2025-03-23 11:25 | Outpatient (AMB) | payer MEDICARE, BC, SELFPAY ==
[2025-03-23 11:33] VITALS: BP 122/76; PULSE 57; RESP 18; TEMP 36.8; O2SAT 98; BMI 26.0
--- NOTE | 2025-03-23 11:33 | MHC.PC.OV ---
Vital Signs 03/23/25 11:33 Height 5 ft 2 in Weight 142 lb BMI 26.0 BP 122/76 Blood Pressure Location Lt brachial Position Sitting Respiration 18 Pulse 57 Pulse Source Pulse Oximeter Temp 98.2 F Temp Source Oral Pulse Oximetry (%) 98 Oxygen Delivery Method Room Air Intake Visit Reasons: Itchy ears Intake Note: Pt is here today for a sick visit. Pt c/o itchy ears. Allergies doxycycline Allergy (Intermediate, Verified 02/12/25 13:14) Abdominal Pain alendronate sodium (From Fosamax) Adverse Reaction (Intermediate, Verified 02/12/25 13:14) Stomach Upset sertraline Adverse Reaction (Verified 02/12/25 13:14) Abdominal Pain Medication List - Last Reconciled 03/23/25 by Venessa Henriquez MD ciprofloxacin-dexamethasone 0.3-0.1 % 4 drps otic (ears) BID hyoscyamine sulfate 0.125 mg PO BID PRN [id number] acid-lutein 400-250 mcg (Centrum Silver) 1 tab PO DAILY omeprazole 40 mg PO DAILY Tobacco use date assessed: 03/23/25 Fall risk assessment: No Falls in past year Last assessed Fall Risk: 03/23/25 Dental Screening Dental Screen Date: 12/05/24 HPI Itchy ears HPI Details Patient complains of left ear pruritus and purulent ear canal discharge no pain swelling fever or chills PFSH Medical History Anxiety Abdominal pain Normal breast exam Vitamin D deficiency Normal Pap smear Microscopic hematuria Vitiligo Osteopenia Annual physical exam Surgical History H/O colonoscopy No pertinent past surgical history Family History Father Hypertension Mother No problems noted. Social History Housing: House Alcohol intake: never Patient Tobacco Use Status: Never used Tobacco e-Cigarette/Vaping Use: Never Used service: No Current occupational status: employed Cognitive needs: No Hearing needs: No Vision needs: No Questionnaire Thrive Questionnaire Date Thrive assessed: 10/02/24 SONU-7 AMB Questionnaire SONU-7 Date SONU - 7 assessed: 12/05/24 Source: Developed by Drs. Paul Hayden, Ellie Marquez, Dean Luna and colleagues, with an educational danae from [employer]. Review of Systems Const All systems reviewed & are unremarkable except as noted in HPI and below Reports no additional complaints Eyes Reports no additional complaints ENT Reports no additional complaints Card Reports no additional complaints Physical exam (Primary Care) Vital Signs: Last Vital Signs Temp 98.2 F 03/23/25 11:33 Pulse 57 03/23/25 11:33 Resp 18 03/23/25 11:33 BP 122/76 03/23/25 11:33 Pulse Ox 98 03/23/25 11:33 Oxygen Delivery Method Room Air 03/23/25 11:33 BMI result Body Mass Index 26.0 Tobacco/Smoking Status: Tobacco use Status Tobacco use date assessed 03/23/25 03/23/25 11:39 Patient Tobacco Use Status Never used Tobacco 03/23/25 11:35 e-Cigarette/Vaping Use Never Used 03/23/25 11:35 Thrive Assessment: Date of Thrive Assessment Date Thrive assessed 10/02/24 03/23/25 11:35 Const General: no acute distress HENMT Head: Yes normal to inspection Ears: TM's normal bilaterally and external ear abnormal (Left ear canal with erythema and yellowish discharge) General nose exam: Normal external nose present Face and sinus: Yes normal facial exam Throat: Yes posterior oropharynx normal Resp Effort & Inspection: normal respiratory effort Cardio Rhythm: regular rhythm Heart sounds: S1 normal heart sound present and S2 normal heart sound present Coding Level of Care Code Est Pt Level 3 (09104) Diagnoses Osteoporosis M81.0 Otitis externa H60.90 Assessment & Plan Assessment & Plan (1) Osteoporosis: Comment: DEXA 08/27 T score -2.7. Fosamax started on 09/28 , patient could not tolerate due to stomach upset, will continue vitamin-D and exercise and repeat DEXA in 09/30 Code(s): M81.0 - Age-related osteoporosis without current pathological fracture Category: Medical Plan: Continue vitamin-D supplement weight-bearing exercises repeat DEXA (2) Otitis externa: Code(s): H60.90 - Unspecified otitis externa, unspecified ear Category: Medical Plan: Cipro dexamethasone otic drops are prescribed. Orders: Orders XR DEXA axial skeleton Today M81.0 - Age-related osteoporosis without current pathological fracture Medications: New ciprofloxacin-dexamethasone 0.3-0.1 % 4 drps otic (ears) BID 7.5 mL 0RF
--- OUTSIDE RECORDS SUMMARY | 2025-03-23 11:51 | XMS_ITS | Clinical Summary ---
Author Organization [facility] Address [address] [place] [address] Phone Care Team Providers Care [employer] Law Clerk Name Role Phone Venessa Henriquez MD Primary Care Provider Pilar chung Allergies No known active allergies Medications therapeutic multivitamin tablet Take 1 tablet by mouth daily. Active cholecalciferol, vitamin D3, (VITAMIN D3 ORAL) Take by mouth. Active Active Problems No known active problems Social History Tobacco Use Types Packs/Day Years Used Date Smoking Tobacco: Former Cigarettes Smokeless Tobacco: Never Tobacco Cessation:Counseling Given: Not Answered Alcohol Use Standard Drinks/Week Comments Not Currently 0 (1 standard drink = 0.6 oz pur e alcohol) Education Answer Date Recorded Are you interested in more education? Not on rinku e 05/06/2023 Are you concerned about learning? Not on file 05/06/2023 No 05/06/2023 No 05/06/2023 Digital Access Answer Date Recorded No 05/06/2023 No 05/06/2023 Reliable internet access at home? Not on file 05/06/2023 Device with a working camera? Not on file Comments Unknown Sex and Gender Information Value Date Recorded Sex Assigned at Not on file Legal Sex Female 2:12 PM EDT Gender Identity Not on file Sexual Orientation Not on file Last Filed Vital Signs Vital Sign Reading Time Taken Comments Blood Pressure 171/100 05/06/2023 2:38 PM EDT Pulse 96 05/06/2023 2:38 PM EDT Temperature 37.2 C (98.9 F) 05/06/2023 2:38 PM EDT Respiratory Rate 18 05/06/2023 2:38 PM EDT Oxygen Saturation 96% 05/06/2023 2:38 PM EDT Inhaled Oxygen Concentration - - Weight - - Height - - Body Mass Index - - Plan of Treatment Health Maintenance Due Date Last Done Comments Adult Td,Tdap Booster 1960 LIPID PANEL 1960 DEPRESSION SCREENING 1972 SMOKING Hx and SMOKELESS TOB ACCO SCREENING 01/30/1973 HEPATITIS C SCREENING 01/30/1978 HIV ONE-TIME SCREENING (18-6 5 YEARS) 01/30/1978 MAMMOGRAM 2000 COLOGUARD 01/30/2005 COLONOSCOPY 01/30/2005 COLORECTAL CANCER SCREENING 01/30/2005 FIT TEST 01/30/2005 FOBT 01/30/2005 SIGMOIDOSCOPY 01/30/2005 VIRTUAL COLONOSCOPY 01/30/2005 PNEUMOCOCCAL VACCINES (50+ y ears) (1 of 1 - PCV) 01/30/2010 ZOSTER VACCINES (1 of 2) 01/30/2010 COVID-19 VACCINE (1 - 2023-2 5 season) 2024 OSTEOPOROSIS SCREENING INITI AL (ONE-TIME) 01/30/2025 RSV VACCINE (1 - 1-dose 75+ series) 01/30/2035 HEPATITIS A VACCINES Aged Out No long er eligible based on patient's age to complete this topic HIB VACCINES Aged Out No longer eligi ble based on patient's age to complete this topic MENINGOCOCCAL VACCINES (ACWY) Aged Out No longer eligible based on patient's age to complete this topic MENINGOCOCCAL VACCINES (B) Aged Out N o longer eligible based on patient's age to complete this topic Medical Devices Not on file Insurance [facility] H[facility] Care Teams [employer] Law Clerk Relationship Specialty Start Date End Date Venessa Henriquez MD PCP - General Internal Medicine 05/06/23 Additional Source Comments The information contained in this document represents components of the legal health record. It is not the complete legal health record.[facility]
== END 2025-03-23 12:21 | disposition home or self-care (01) ==
PROVIDERS: PCP Internal Medicine; Visit Provider Internal Medicine
DX: M81.0 Age-related osteoporosis without current pathological fracture (principal); H60.92 Unspecified otitis externa, left ear

== ENCOUNTER → 2025-03-23 11:25 | Outpatient (BNVA) | payer MEDICARE, OTHER, SELFPAY | PROVIDERS: PCP Internal Medicine; Visit Provider Internal Medicine | DX: M81.0 Age-related osteoporosis without current pathological fracture (principal); H60.93 Unspecified otitis externa, bilateral | CPT/HCPCS: 99212 ==

== ENCOUNTER 2025-05-16 11:10 | Outpatient (AMB) | payer MEDICARE, SELFPAY ==
--- NOTE | 2025-05-16 11:16 | MHC.PC.OV ---
Vital Signs 05/16/25 11:17 Height 5 ft 2 in Weight 142 lb BMI 26.0 BP 126/80 Blood Pressure Location Lt brachial Position Sitting Respiration 18 Pulse 67 Pulse Source Pulse Oximeter Temp 98.4 F Temp Source Oral Pulse Oximetry (%) 96 Oxygen Delivery Method Room Air Intake Visit Reasons: 3m f/up Intake Note: Pt is here today for 3 months follow up visit. Allergies doxycycline Allergy (Intermediate, Verified 05/16/25 11:21) Abdominal Pain alendronate sodium (From Fosamax) Adverse Reaction (Intermediate, Verified 05/16/25 11:21) Stomach Upset sertraline Adverse Reaction (Verified 05/16/25 11:21) Abdominal Pain Medication List - Last Reconciled 05/16/25 by Venessa Henriquez MD hyoscyamine sulfate 0.125 mg PO BID PRN [id number]-[id number] acid-lutein 400-250 mcg (Centrum Silver) 1 tab PO DAILY Tobacco use date assessed: 03/23/25 Fall risk assessment: No Falls in past year Last assessed Fall Risk: 05/16/25 Dental Screening Dental Screen Date: 12/05/24 HPI 3m f/up HPI Details Pt presents for f/u of IBS, diet controlled and pt takes probiotics, Patient has not been taking hyocyamine regularly PFSH Medical History Anxiety Abdominal pain Normal breast exam Vitamin D deficiency Normal Pap smear Microscopic hematuria Vitiligo Osteopenia Annual physical exam Surgical History H/O colonoscopy No pertinent past surgical history Family History Father Hypertension Mother No problems noted. Social History Housing: House Alcohol intake: never Patient Tobacco Use Status: Never used Tobacco e-Cigarette/Vaping Use: Never Used service: No Current occupational status: employed Cognitive needs: No Hearing needs: No Vision needs: No Questionnaire Thrive Questionnaire Date Thrive assessed: 10/02/24 SONU-7 AMB Questionnaire SONU-7 Date SONU - 7 assessed: 12/05/24 Source: Developed by Drs. Paul Hayden, Ellie B.Dean Mims and colleagues, with an educational danae from [employer]. Review of Systems Const All systems reviewed & are unremarkable except as noted in HPI and below Eyes Reports no additional complaints ENT Reports no additional complaints Card Reports no additional complaints Resp Reports no additional complaints GI Reports no additional complaints Reports no additional complaints Physical exam (Primary Care) Vital Signs: Last Vital Signs Temp 98.4 F 05/16/25 11:17 Pulse 67 05/16/25 11:17 Resp 18 05/16/25 11:17 BP 126/80 05/16/25 11:17 Pulse Ox 96 05/16/25 11:17 Oxygen Delivery Method Room Air 05/16/25 11:17 BMI result Body Mass Index 26.0 Tobacco/Smoking Status: Tobacco use Status Tobacco use date assessed 03/23/25 05/16/25 11:17 Patient Tobacco Use Status Never used Tobacco 05/16/25 11:17 e-Cigarette/Vaping Use Never Used 05/16/25 11:17 Thrive Assessment: Date of Thrive Assessment Date Thrive assessed 10/02/24 05/16/25 11:17 Const General: no acute distress HENMT Head: Yes normal to inspection Mouth: Normal oral and palatal mucosa present Eyes General: appearance normal, both eyes and all related structures Resp Effort & Inspection: normal respiratory effort Auscultation: clear to auscultation bilaterally Cardio Rhythm: regular rhythm Heart sounds: S1 normal heart sound present and S2 normal heart sound present GI Inspection: Yes normal to inspection Coding Level of Care Code Est Pt Level 3 (71549) Diagnoses Vitamin D deficiency E55.9 Anxiety F41.9 IBS (irritable bowel syndrome) K58.9 Assessment & Plan Assessment & Plan (1) Vitamin D deficiency: Code(s): E55.9 - Vitamin D deficiency, unspecified Category: Medical Plan: Continue vitamin-D supplement (2) Anxiety: Comment: Intolerant to sertraline established with a counselor Code(s): F41.9 - Anxiety disorder, unspecified Category: Medical Plan: Resolved after patient retired (3) IBS (irritable bowel syndrome): Code(s): K58.9 - Irritable bowel syndrome, unspecified Category: Medical Plan: Continue well-balanced diet and probiotics supplement Orders: Orders Comprehensive [place]. Panel Fast 5 Months E55.9 - Vitamin D deficiency, unspecified, Z00.00 - Encounter for general adult medical examination without abnormal findings TSH reflex Free T4 5 Months E55.9 - Vitamin D deficiency, unspecified, Z00.00 - Encounter for general adult medical examination without abnormal findings Vitamin D 25-OH Total 5 Months E55.9 - Vitamin D deficiency, unspecified, Z00.00 - Encounter for general adult medical examination without abnormal findings Complete Blood Count Auto Diff 5 Months E55.9 - Vitamin D deficiency, unspecified, Z00.00 - Encounter for general adult medical examination without abnormal findings Lipid Panel 5 Months E55.9 - Vitamin D deficiency, unspecified, Z00.00 - Encounter for general adult medical examination without abnormal findings
[2025-05-16 11:17] VITALS: BP 126/80; PULSE 67; RESP 18; TEMP 36.9; O2SAT 96; BMI 26.0
--- OUTSIDE RECORDS SUMMARY | 2025-05-16 14:21 | XMS_ITS | Clinical Summary ---
Author Organization [facility] Address [address] [place] [address] Phone Care Team Providers Care Cinder Crane Operator Name Role Phone Venessa Henriquez MD Primary Care Provider [phone] Allergies No known active allergies Medications therapeutic [...] 01/30/2010 ZOSTER VACCINES (1 of 2) 01/30/2010 OSTEOPOROSIS SCREENING INITI AL (ONE-TIME) 01/30/2025 INFLUENZA VACCINE (#1) 2025 COVID-19 VACCINE (1 - 2023-2 5 season) 2025 RSV VACCINE (1 - 1-dose 75+ series) [...] topic Medical Devices Not on file Insurance HMO [facility] HMO [facility] HMO Care Teams Cinder Crane Operator Relationship Specialty Start Date End Date Venessa Henriquez MD [address] [place] [address] PCP - General Internal Medicine 05/06/23 Additional Source Comments The information contained in this document represents components of the legal health record. It is not the complete legal health record.[facility]
== END 2025-05-16 12:19 | disposition home or self-care (01) ==
PROVIDERS: PCP Internal Medicine; Visit Provider Internal Medicine
DX: E55.9 Vitamin D deficiency, unspecified (principal); F41.9 Anxiety disorder, unspecified; K58.9 Irritable bowel syndrome, unspecified

== ENCOUNTER → 2025-05-16 11:10 | Outpatient (BNVA) | payer MEDICARE, SELFPAY | PROVIDERS: PCP Internal Medicine; Visit Provider Internal Medicine | DX: E55.9 Vitamin D deficiency, unspecified (principal); F41.9 Anxiety disorder, unspecified; K58.9 Irritable bowel syndrome, unspecified | CPT/HCPCS: 99212 ==

== ENCOUNTER 2025-05-17 10:05 | Outpatient (REF) | payer MEDICARE, SELFPAY ==
--- NOTE | ~2025-05-17 | MM_ITS ---
EXAMINATION: DXA BONE DENSITY AXIAL HISTORY: M81.0 - Age-related osteoporosis without current pathological fracture TECHNIQUE: [employer] Dual energy absorptiometry (DEXA) of the lumbar spine, total left hip, and femoral neck was performed. COMPARISON: Comparison is made with the prior examination dated 09/15/2022. FINDINGS: The bone mineral density of the lumbar spine is 0.829 g/cm2, corresponding to a T-score of -2.9, and a Z-score of -1.3. This is indicative of osteoporosis. This represents a BMD change of -3.0% compared to the prior exam. This is not statistically significant. The bone mineral density of the left total hip is 0.864 g/cm2, corresponding to a T-score of -1.1, and a Z-score of 0.1. This is indicative of osteopenia. This represents a BMD change of -5.7% compared to the prior exam. This is statistically significant. The bone mineral density of the left femoral neck is 0.787 g/cm2, corresponding to a T-score of -1.8, and a Z-score of -0.3. This is indicative of osteopenia. This represents a BMD change of -0.9% compared to the prior exam. MM/XR DEXA axial skeleton IMPRESSION: Based on bone mineral density, and according to World Health Organization (WHO) criteria, the diagnosis is consistent with osteoporosis. Statistically, 68% of repeat scans fall within 1 SD (+/- 0.010 g/cm2 for AP spine L1-L4) and 1 SD (+/- 0.012 g/cm2 for femur total) FRAX is a trademark of the [employer] [place] for Metabolic Bone Disease, a World Health Organization (WHO) Collaborating Center. Electronically signed by: Paul Correa MD 05/17/2025 11:07 AM EDT
--- OUTSIDE RECORDS SUMMARY | 2025-05-17 12:13 | XMS_ITS | Clinical Summary ---
Author Organization [facility] Address [address] [place] [address] Phone Care Team Providers Care Regulatory Affairs Associate Name Role Phone Venessa Henriquez MD Primary Care Provider [phone] Allergies No known active allergies Medications therapeutic [...] Medical Devices Not on file Insurance [facility] HMO [facility] Address: [address] [address] Care Teams Regulatory Affairs Associate Relationship Specialty Start Date End Date Venessa Henriquez MD [address] [place] [address] PCP - General Internal Medicine 05/06/23 Additional Source Comments The information contained in this document represents components of the legal health record. It is not the complete legal health record.[facility]
== END 2025-05-17 10:06 | disposition home or self-care (01) ==
LOC: HO.MAMMO 10:05
PROVIDERS: PCP Internal Medicine; Visit Provider Internal Medicine
DX: M81.0 Age-related osteoporosis without current pathological fracture (principal)
CPT/HCPCS: 77080

== ENCOUNTER → 2025-05-17 10:30 | Outpatient (BNV) | payer MEDICARE, SELFPAY | PROVIDERS: PCP Internal Medicine; Visit Provider Radiology Diagnostic Radiology | DX: E28.39 Other primary ovarian failure (principal) | CPT/HCPCS: 77080 ==

== ENCOUNTER 2025-05-31 14:03 | Outpatient (AMB) | payer MEDICARE, SELFPAY ==
--- NOTE | 2025-05-31 14:05 | MHC.PC.OV ---
Vital Signs 05/31/25 14:06 Height 5 ft 2 in Weight 142 lb BMI 26.0 BP 116/70 Blood Pressure Location Lt brachial Position Sitting Respiration 18 Pulse 73 Pulse Source Pulse Oximeter Temp 98.4 F Temp Source Oral Pulse Oximetry (%) 98 Oxygen Delivery Method Room Air Intake Visit Reasons: Follow up on BD results Intake Note: Pt is here today to discuss Bone density results. Allergies doxycycline Allergy (Intermediate, Verified 05/31/25 14:08) Abdominal Pain alendronate sodium (From Fosamax) Adverse Reaction (Intermediate, Verified 05/31/25 14:08) Stomach Upset sertraline Adverse Reaction (Verified 05/31/25 14:08) Abdominal Pain Medication List - Last Reconciled 05/31/25 by Venessa Henriquez MD cholecalciferol (vitamin D3) 50 mcg PO DAILY hyoscyamine sulfate 0.125 mg PO BID PRN ibandronate 150 mg PO QMONTH pyvzuvup-pvo-bkgnd acid-lutein 400-250 mcg (Centrum Silver) 1 tab PO DAILY Tobacco use date assessed: 05/31/25 Fall risk assessment: No Falls in past year Last assessed Fall Risk: 05/31/25 Dental Screening Dental Screen Date: 12/05/24 HPI Follow up on BD results HPI Details Patient presents to discuss results of DEXA. It showed worsening osteoporosis. Patient has been taking vitamin-D and walking daily. [facility] Medical History Anxiety Abdominal pain Normal breast exam Vitamin D deficiency Normal Pap smear Microscopic hematuria Vitiligo Osteopenia Annual physical exam Surgical History H/O colonoscopy No pertinent past surgical history Family History Father Hypertension Mother No problems noted. Social History Housing: House Alcohol intake: never Patient Tobacco Use Status: Never used Tobacco e-Cigarette/Vaping Use: Never Used service: No Current occupational status: employed Cognitive needs: No Hearing needs: No Vision needs: No Questionnaire PHQ-9 Over the last 2 weeks, how often have you been bothered by any of the following problems? 1. Little interest or pleasure in doing things: not at all 2. Feeling down, depressed, or hopeless: not at all 3. Trouble falling or staying asleep, or sleeping too much: not at all 4. Feeling tired or having little energy: not at all 5. Poor appetite or overeating: not at all 6. Feeling bad about yourself - or that you are a failure or have let yourself or your family down: not at all 7. Trouble concentrating on things, such as reading the newspaper or watching television: not at all 8. Moving or speaking so slowly that other people could have noticed. Or the opposite - being so fidgety or restless that you have been moving around a lot more than usual: not at all 9. Thoughts that you would be better off or of hurting yourself in some way: not at all Total score: 0 Depression Screening Interpretation: Negative Depression Screening Done: Yes Source: Developed by Drs. Paul Hayden, Dean Martinez and colleagues, with an educational danae from [employer]. Thrive Questionnaire Date Thrive assessed: 10/02/24 SONU-7 AMB Questionnaire SONU-7 Date SONU - 7 assessed: 12/05/24 Feeling nervous, anxious, or on edge: 0 = Not at all Not being able to stop or control worryin = Not at all Worrying too much about different things: 0 = Not at all Trouble relaxin = Not at all Being so restless that it is hard to sit still: 0 = Not at all Becoming easily annoyed or irritable: 0 = Not at all Feeling afraid as if something awful might happen: 0 = Not at all Total SONU-7 score (0-4 normal; 5-9 mild; 10-14 moderate; 15-21 severe): 0 Source: Developed by Drs. Paul Hayden, Dean Martinez and colleagues, with an educational danae from [employer]. Review of Systems Const All systems reviewed & are unremarkable except as noted in HPI and below ENT Reports no additional complaints Card Reports no additional complaints Resp Reports no additional complaints GI Reports no additional complaints Reports no additional complaints Physical exam (Primary Care) Vital Signs: Last Vital Signs Temp 98.4 F 05/31/25 14:06 Pulse 73 05/31/25 14:06 Resp 18 05/31/25 14:06 BP 116/70 05/31/25 14:06 Pulse Ox 98 05/31/25 14:06 Oxygen Delivery Method Room Air 05/31/25 14:06 BMI result Body Mass Index 26.0 Tobacco/Smoking Status: Tobacco use Status Tobacco use date assessed 05/31/25 05/31/25 14:11 Patient Tobacco Use Status Never used Tobacco 05/31/25 14:06 e-Cigarette/Vaping Use Never Used 05/31/25 14:06 PHQ-9: PHQ-9 Score PHQ-9: Total score 0 05/31/25 14:11 Depression Screening Interpretation: Negative Thrive Assessment: Date of Thrive Assessment Date Thrive assessed 10/02/24 05/31/25 14:06 Const General: no acute distress HENMT Face and sinus: Yes normal facial exam Eyes General: appearance normal, both eyes and all related structures Resp Effort & Inspection: normal respiratory effort Auscultation: clear to auscultation bilaterally Cardio Rhythm: regular rhythm Heart sounds: S1 normal heart sound present and S2 normal heart sound present Coding Level of Care Code Est Pt Level 3 (40475) Diagnoses Osteoporosis M81.0 Assessment & Plan Assessment & Plan (1) Osteoporosis: Comment: DEXA 08/27 T score -2.7. Fosamax started on 09/28 , patient could not tolerate due to stomach upset, repeat DEXA 05/2025 T score -2.9 L spine Code(s): M81.0 - Age-related osteoporosis without current pathological fracture Category: Medical Plan: Treatment options discussed with the patient she will try ibandronate 150 mg month we continue vitamin-D supplement and weight-bearing exercises discussed with the patient. Repeat DEXA in 2 years Orders: Orders UA w Microscopic 5 Months Z00.00 - Encounter for general adult medical examination without abnormal findings Medications: New ibandronate 150 mg PO QMONTH 3 tabs 3RF
[2025-05-31 14:06] VITALS: BP 116/70; PULSE 73; RESP 18; TEMP 36.9; O2SAT 98; BMI 26.0
--- OUTSIDE RECORDS SUMMARY | 2025-05-31 18:33 | XMS_ITS | Clinical Summary ---
Author Organization [facility] Address [address] [place] [address] Phone Care Team Providers Care Density Control Puncher Name Role Phone Venessa Henriquez MD Primary Care Provider [phone] Allergies No known active allergies Medications therapeutic [...] Medical Devices Not on file Insurance HMO [facility] Care Teams Density Control Puncher Relationship Specialty Start Date End Date Venessa Henriquez MD [address] [place] [address] PCP - General Internal Medicine 05/06/23 Additional Source Comments The information contained in this document represents components of the legal health record. It is not the complete legal health record.[facility]
== END 2025-05-31 16:55 | disposition home or self-care (01) ==
LOC: HO.HMCC 14:04
PROVIDERS: PCP Internal Medicine; Visit Provider Internal Medicine
DX: M81.0 Age-related osteoporosis without current pathological fracture (principal)

== ENCOUNTER → 2025-05-31 14:03 | Outpatient (BNVA) | payer MEDICARE, SELFPAY | PROVIDERS: PCP Internal Medicine; Visit Provider Internal Medicine | DX: M81.0 Age-related osteoporosis without current pathological fracture (principal); Z13.31 Encounter for screening for depression | CPT/HCPCS: 96127; 99212 ==